=== PATIENT | female | born 1955 | race Caucasian/White ===

== ENCOUNTER → 2017-11-16 09:39 | Outpatient (REF) | payer BC, SELFPAY ==
--- NOTE | 2017-11-16 08:15 | PAPFT_PTH ---
PATIENT: Rayo Guthrie LOC: [facility] U#:[id number] AGE/SX: 70/F ROOM: RE11/16/[address]: VANE Gonzalez : 1955 BED: DIS: SPEC #: [id number] RECD: 11/16/17 12:59 STATUS: [place] REQ #: [id number] ESTELLA: 11/16/17 08:[address]: Radha Singh DEPT: FORMERLY [facility], [facility] Cytology RECD BY: Michelle Bella ENTERED: 11/16/17 12:59 SP TYPE: PAPFT OTHR DR: Carine Kinney MD Tissues: 1 - CX/ENDOCX FOR PAP SMEARS Procedures: PAP THIN PREP/UVM Screening HPV DNA PROBE Comments: [id number]
== END ==
LOC: LBN 09:39
PROVIDERS: PCP Internal Medicine; Visit Provider Nurse Practitioner Family
DX: Z12.4 Encounter for screening for malignant neoplasm of cervix (principal); Z11.51 Encounter for screening for human papillomavirus (HPV)
CPT/HCPCS: 88142; 87624

== ENCOUNTER 2018-04-16 01:14 | Outpatient (CLI) | payer BC, SELFPAY ==
--- NOTE | 2018-04-16 14:46 | DI.DEXA_ITS ---
SYMPTOMS/DIAGNOSIS: SCREENING FOR OSTEOPOROSIS, Z13.820 DEXA SCAN: Routine examination. No priors. Evaluation of the left hip shows a total T score of -2.3 and a Z score of -1.1. This is consistent with osteopenia and an increased fracture risk. Evaluation of the lumbar spine shows a total T score of 0.4 and a Z score of 2.2 which is within normal limits. The single view of the lateral spine shows no compression deformities. IMPRESSION: Osteopenia of the left hip. No evidence of osteoporosis.
== END 2018-04-16 01:34 ==
PROVIDERS: PCP Internal Medicine; Visit Provider Internal Medicine
DX: M85.88 Other specified disorders of bone density and structure, other site (principal)
CPT/HCPCS: 77080

== ENCOUNTER 2018-04-23 01:59 | Outpatient (CLI) | payer BC, SELFPAY ==
[2018-04-23 16:55] LABS: HCT 38.2 % (36.0-46.0); HGB 12.7 g/dL (12.0-15.5); Mean Corp. HGB Concentration 33.2 g/dL (32.0-36.0); Mean Corpuscular Volume 87.2 fL (80-95); Mean Platelet Volume 9.6 fL (8.0-11.0); Platelet Count 366 x1000/uL (130-400); RBC 4.38 m/cumm (4.00-5.20); White Blood Cell Count 11.39 k/cumm (4.4-10.8)
== END 2018-04-23 02:19 ==
PROVIDERS: PCP Internal Medicine; Visit Provider Internal Medicine
DX: Z83.2 Family history of diseases of the blood and blood-forming organs and certain disorders involving the immune mechanism (principal)
CPT/HCPCS: 36415; 85027

== ENCOUNTER 2019-01-03 17:46 | Emergency (ER) | payer BC, SELFPAY ==
[2019-01-03 17:48] VITALS: BP 131/75; PULSE 56; RESP 16; TEMP 36.5; O2SAT 100
--- NOTE | 2019-01-03 17:53 | DI.RAD_ITS ---
EXAM: XR WRIST RT COMPLETE CLINICAL HISTORY: pain after fall. TECHNIQUE: 2D digital imaging was performed. COMPARISON: No exams were available for comparison FINDINGS: BONES: There is a comminuted fracture of the distal radius. The fracture is intra-articular. There is depression of the lateral aspect of the fracture. Also displaced fracture fragments noted. There is a mildly displaced ulnar styloid process fracture. JOINTS: The carpal bones are normally aligned. SOFT TISSUE: There is soft tissue swelling about the wrist. IMPRESSION: Comminuted, displaced, and depressed intra-articular fracture of the distal right radius. Mildly displaced ulnar styloid process fracture.
--- NOTE | 2019-01-03 17:58 | W.ED.GENAD ---
Discharge Plan Disposition Patient Disposition: HOME Condition: Improving Discharge Details Chief Complaint: Orthopedic Clinical Impression: Distal radius fracture, right Primary Care Provider: Carine Kinney ED Provider: Skip Resendez Home Meds and New Rx's Prescriptions: Continued multivitamin [Daily Multi-Vitamin] 1 EACH tablet 1 ea PO DAILY RF: 0 calcium carbonate-vitamin D3 1 EACH tablet 1 ea PO DAILY RF: 0 ascorbic acid (vitamin C) [Vitamin C] 1,000 MG tablet 1,000 mg PO DAILY RF: 0 Discharge Instructions Instructions: Wrist Fracture in Adults (ED) Additional Instructions: Elevate above the level of the heart to reduce pain and swelling. Please apply ice through the splint material to reduce swelling as well. Sling as needed for comfort Return if you develop numbness, tingling, blue fingertips or increasing pain. You may use Tylenol and/or ibuprofen as needed for pain. I discussed your case this evening with Dr Alonso, who wishes to see you in the office Sunday or Sunday. Please call the office Sunday morning for an appointment time. The phone number is [phone]. Medical Decision Making 63-year-old female presents from home after descending a ladder while painting, stumbled, landed on outstretched right hand with immediate distal radius pain and swelling. She took [id number] NSAID, rested for approximately 1 hour, then presented to the ER for evaluation. X-ray with distal radius fracture: Comminuted intra-articular fracture. Case discussed with on-call orthopedics, Dr. Alonso. Patient placed in sugar tong splint and referred for CT images for further characterization of fracture. Remains neuro/vascular intact. Stable for outpatient management and she will follow-up with orthopedics in clinic on Sunday. Patient understands follow-up as well as return precautions. HPI General Mode of arrival: ambulatory. Date/Time Provider Initiated Documentation: 01/03/19 17:52. Limitations to Documentation: no limitations. Information obtained by: patient. History of Present Illness 63 year old F presents to the emergency department with the chief complaint of Fall on outstretched hand while descending a ladder, distal right pain, described as moderate, Quality is described as dull and constant, and is localized to the right and upper extremity. Patient reports no radiation. Patient started experiencing this minute(s) Rest improves symptom(s), Movement worsens symptoms . Patient notes no other symptoms.. Patient did receive the following treatments prior to arrival, none Related Data Home Medications Medication Instructions Recorded Confirmed calcium carbonate-vitamin D3 1 ea PO DAILY 09/20/12 01/03/19 multivitamin [Daily Multi-Vitamin] 1 ea PO DAILY 09/20/12 01/03/19 ascorbic acid (vitamin C) [Vitamin 1,000 mg PO DAILY 04/04/17 01/03/19 C] Allergies Allergy/AdvReac Type Severity Reaction Status Date / Time No Known Drug Allergies Allergy Verified 01/03/19 17:52 General Stated Complaint: Orthopedic PUJA: 4 Review of Systems Review of Systems Narrative: No numbness or tingling. Denies other injury. No loss of consciousness. FORMERLY [facility] Medical History Diverticulitis (Chronic ~1997) 2nd operation, temporary colostomy reverse colostomy Menopause (Chronic ~2005) Surgical History H/O: hysterectomy (Chronic ~10/1999) Ligation of fallopian tube (Chronic) S/P cataract extraction (Chronic) left 06/25/97, right 07/16/97 S/P cervical polypectomy (Chronic ~08/1999) Family History Mother , cancer, malignant mixed mesodermal, chondrosarcomamatous comp at age 75. Stomach cancer Essential hypertension Father , CAD at age 73, cardiac arrest due to a fib, CHF. CAD (coronary artery disease) Sister Essential hypertension Paternal Grandfather , 79, cerebrovascular, hypertensive, cardiovascular Essential hypertension Paternal Grandmother , 78 anoxic encephalopathy No problems noted. Maternal Grandfather , 60, cancer No problems noted. 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 Pleasant, well groomed, interactive. HEAD: Normocephalic, atraumatic ENT: Mucous membranes moist, oropharynx unremarkable EYES: PERRL, EOMI NECK: Full ROM, no JEAN CLAUDE, no menigismus CHEST/RESP: Nontender. Back: Nontender EXT: The right distal radius/metacarpal junction with dorsal ecchymosis, swelling, tenderness. 2+ radial pulse. Distal motor function intact but limited by pain. Sensation is intact throughout. Neuro: Grossly normal neurologic exam, conversant, interactive. Psych: Speech fluent, thoughts congruent, affect normal Course Vital Signs Vital signs: Vital Signs Temperature 36.5 C 01/03/19 17:48 Pulse 56 L 01/03/19 17:48 Respiratory Rate 16 01/03/19 17:48 Blood Pressure 131/75 01/03/19 17:48 Pulse Oximetry 100 01/03/19 17:48 Temperature 36.5 C 01/03/19 17:48 Temperature Source Skin 01/03/19 17:48 Pulse 56 L 01/03/19 17:48 Respiratory Rate 16 01/03/19 17:48 Respiratory Effort Non-Labored 01/03/19 17:52 Blood Pressure 131/75 01/03/19 17:48 Blood Pressure Position Sitting 01/03/19 17:48 Pulse Oximetry 100 01/03/19 17:48 Oxygen Delivery Method Room Air 01/03/19 17:48 Oxygen Flow Rate 0 01/03/19 17:48
--- NOTE | 2019-01-03 20:00 | DI.CT_ITS ---
EXAM: CT UPPER EXTREMITY RT WO CLINICAL HISTORY: distal radius fracture. TECHNIQUE: Multiple contiguous axial images through the right wrist were obtained. Sagittal and cor onal reformatted images were performed. COMPARISON: X-ray of the right wrist dated 01/03/2019 FINDINGS: There is a comminuted fracture involving the distal right wrist. The fracture is intra-articular and depressed. The anterior fracture fragment and wrist are displaced anteriorly. There are tiny osseo us fragments adjacent to the trapezium. These may be chronic or represent small avulsed fracture fra gments. There is a mildly displaced ulnar styloid process fracture. There is soft tissue swelling o f the wrist. IMPRESSION: Comminuted, intra-articular, and depressed fracture involving the distal radius. The anterior fractu re fragments and the wrist are displaced anteriorly. Mildly displaced ulnar styloid process fracture. Tiny calcific densities adjacent to the trapezium. These may be chronic. However acute avulsed frac ture fragments cannot be excluded.
[2019-01-03 22:30] VITALS: BP 131/75; PULSE 56; RESP 16; O2SAT 100
== END 2019-01-03 20:20 | disposition home or self-care (01) ==
PROVIDERS: Emergency Provider Emergency Medicine; PCP Internal Medicine
DX: S52.591A Other fractures of lower end of right radius, initial encounter for closed fracture (principal); W11.XXXA Fall on and from ladder, initial encounter
CPT/HCPCS: 29125; 99284; 73110; 73200; L3650

== ENCOUNTER 2019-01-10 06:15 | Day surgery (SDC) | payer BC, SELFPAY ==
[2019-01-10] VITALS (7 sets, daily range): BP systolic 110–130; BP diastolic 63–84; PULSE 57–76; RESP 13–16; TEMP 36.4–37.2; O2SAT 99–100
--- NOTE | 2019-01-10 07:03 | ROE_ITS ---
Date of service: 01/10/19 Time of Service: 07:14 Operative Note Operative Note DATE OF PROCEDURE: 01/10/19 PRE-OP DIAGNOSIS: 1. Right intra-articular distal radius fracture 2. Right ulnar styloid fracture POST-OP DIAGNOSIS: same PROCEDURE: 1. Right distal radius ORIF, intra-articular 3 fragments 2. Closed treatment without manipulation Right ulnar styloid fracture SURGEON: Wesley Alonso ASSISTING SURGEON: Leopoldo Escobar ANESTHESIA: GETA and local ESTIMATED BLOOD LOSS: 15 TOURNIQUET TIME: 70 COMPLICATIONS: None Patient was transported to: PACU Patient's condition: stable Implants: Synthes 2.4 mm variable angle LCP distal radius plate 2.4 mm variable angle locking screws distally x 6 of appropriate length 2.7 mm cortex screws proximally x 2 of appropriate length Indications: See history and physical Findings: Displaced right radial styloid and volar Dave intra-articular fractures Procedure Description: The patient was taken to the operating room and placed upon the operating room table. The correct patient, procedure, site of procedure were all confirmed prior to induction of general anesthesia. All bony prominences were well-padded. The right upper extremity was positioned on the hand table and prepped and draped in the usual sterile fashion for wrist surgery. A nonsterile tourniquet had been placed high on the patient's arm or padding. The standard volar FCR approach to the distal radius was used. Care was taken to protect the radial artery and ligate any branches. Retraction was done gently with blunt retractors to reduce the risk of vascular or nerve injury. I went through the floor of the FCR tendon sheath. The pronator quadratus was mobilized off the distal radius ulnarly. The fracture was then identified, debrided of clot and fibrous tissue, and preliminarily reduced bluntly. There was an intra-articular volar splint as well as a displaced separate radial styloid articular fragment. These 2 fragments were reduced to the remaining intact shaft and lunate facet at the joint. An appropriate length and size volar distal radius plate was selected and positioned about the volar surface of the distal radius. It was provisionally held in place with K wires. AP and lateral fluoroscopy were used to optimize plate position. After the fracture and plate were ideally positioned, a cortex screw was used to compress the plate to the distal radial shaft. I then used the variable locking guide to place 3 locking screws in the radial shaft fragment, 2 screws in the volar Dave fragment, and and another screw in the intact lunate facet. Care was taken un maurilio AP, lateral, radial inclination, and oblique fluoroscopy to ensure all screws were of appropriate length and not prominent into the joint. A second shaft most proximal cortex screw was placed. All screws were final tightened. Final AP and lateral fluoroscopy confirmed appropriate placement of our hardware in excellent fracture reduction. The wound was copiously irrigated. A tourniquet was let down and manual pressure was held for 2 minutes. There was no arterial bleeding. The radial artery was palpable. Careful hemostasis was achieved. The pronator quadratus was reduced over the hardware. Subcutaneous tissue was closed using 3-0 Monocryl in a buried interrupted fashion. The skin was closed using 4-0 nylon in horizontal mattress fashion. The incision was covered with Xeroform and dry gauze. A small and minimally displaced ulnar styloid fracture was visualized on AP and lateral fluoroscopy. The decision was made to accept this alignment and treat this fracture in a closed fashion. A volar splint was then applied to the right forearm, wrist, and hand using soft roll fiberglass sheets and an Shakeel wrap. The patient awoke from anesthesia without complication was taken to the recovery room in stable fashion.
[2019-01-10] MEDS: Lactated Ringers 1,000 ML 100 ML IV (07:11)
--- NOTE | 2019-01-10 07:20 | DI.RAD_ITS ---
EXAM: XR WRIST RT LIMITED CLINICAL HISTORY: RIGHT DISTAL RADIUS FRACTURE. FINDINGS: C-arm fluoroscopy was utilized by Dr. Alonso during open reduction and internal fixation of fracture o f the distal radius. Hard copies show plate and screw fixation of distal radial fracture fragments.
[2019-01-10] MEDS: ceFAZolin 2 GM/50 ML BAG IVPB (07:42)
[2019-01-10] MEDS: Bupivacaine 0.25% Pres-Free 30 ML VIAL (09:35)
[2019-01-10] MEDS: fentaNYL 100 MCG/2 ML VIAL IVP (10:25)
--- NOTE | 2019-01-10 15:53 | DI.RAD_ITS ---
EXAM: XR WRIST RT LIMITED INDICATION: Postop. COMPARISON: No exams were available for comparison TECHNIQUE: 2D digital imaging was performed. FINDINGS: Two views were obtained and show plate and screw fixation of distal radial fracture fragments. Ulnar -styloid fracture again noted as well. The wrist is in splint. IMPRESSION:
== END 2019-01-10 12:04 | disposition home or self-care (01) ==
PROVIDERS: PCP Internal Medicine; Visit Provider Student in an Organized Health Care Education/Training Program
PROC: (CPT 25609; principal; 2019-01-10 07:30)
DX: S52.571A Other intraarticular fracture of lower end of right radius, initial encounter for closed fracture (principal); S52.611A Displaced fracture of right ulna styloid process, initial encounter for closed fracture; W11.XXXA Fall on and from ladder, initial encounter; Y93.E9 Activity, other interior property and clothing maintenance
CPT/HCPCS: 25609; 25650; C1713; 76000; 73100; J0690; J1885; J2405; J3010

== ENCOUNTER 2019-01-21 07:10 | Outpatient (CLI) | payer BC, SELFPAY ==
--- NOTE | 2019-01-21 09:42 | DI.RAD_ITS ---
EXAM: XR WRIST RT LIMITED INDICATION: 1st post op. COMPARISON: XR WRIST RT LIMITED from 01/10/2019 TECHNIQUE: 2D digital imaging was performed. FINDINGS: Two views were obtained and show previously described plate and screw fixation of fracture of the dis candida radius with no gross interval change in alignment of the fracture fragments in comparison with th e previous examination of January 10. IMPRESSION:
== END 2019-01-21 07:30 ==
PROVIDERS: PCP Internal Medicine; Visit Provider Student in an Organized Health Care Education/Training Program
DX: S52.571D Other intraarticular fracture of lower end of right radius, subsequent encounter for closed fracture with routine healing (principal)
CPT/HCPCS: 73100

== ENCOUNTER 2019-02-18 10:20 | Outpatient (CLI) | payer MEDICARE, SELFPAY ==
--- NOTE | 2019-02-18 09:25 | DI.RAD_ITS ---
EXAM: XR WRIST RT LIMITED INDICATION: f/u of distal radius + ulna styloid fractures. COMPARISON: XR WRIST RT LIMITED from 01/21/2019 TECHNIQUE: 2D digital imaging was performed. FINDINGS: There has been no change in alignment of the ulnar styloid process fracture. There is again seen a sideplate and screws transfixing the distal radial fracture which appears stabl e. The bones appear osteopenic suggesting decreased use.
== END 2019-02-18 10:40 ==
PROVIDERS: PCP Internal Medicine; Visit Provider Physician Assistant
DX: S52.611D Displaced fracture of right ulna styloid process, subsequent encounter for closed fracture with routine healing (principal); S52.571D Other intraarticular fracture of lower end of right radius, subsequent encounter for closed fracture with routine healing; X58.XXXD Exposure to other specified factors, subsequent encounter
CPT/HCPCS: 73100

== ENCOUNTER 2019-04-15 09:24 | Outpatient (CLI) | payer MEDICARE, OTHER, SELFPAY ==
--- NOTE | 2019-04-15 09:27 | DI.RAD_ITS ---
EXAM: XR WRIST RT COMPLETE INDICATION: f/u right wrist fracture. COMPARISON: No exams were available for comparison TECHNIQUE: 2D digital imaging was performed. FINDINGS: A fixation plate is again noted along the volar aspect of the distal radius for fracture fixation. T he ulnar styloid fracture appears unchanged. Soft tissue swelling remains present.
== END 2019-04-15 09:44 ==
PROVIDERS: PCP Internal Medicine; Referring Provider Internal Medicine; Visit Provider Student in an Organized Health Care Education/Training Program
DX: S52.571D Other intraarticular fracture of lower end of right radius, subsequent encounter for closed fracture with routine healing (principal); S52.611D Displaced fracture of right ulna styloid process, subsequent encounter for closed fracture with routine healing; X58.XXXD Exposure to other specified factors, subsequent encounter
CPT/HCPCS: 99213; 73110

== ENCOUNTER 2020-04-26 03:16 | Outpatient (CLI) | payer MEDICARE, SELFPAY ==
[2020-04-26 11:07] LABS: Calculated LDL 97 mg/dL (<100); Cholesterol 207 mg/dL (<200); HDL Cholesterol 101 mg/dL (40-60); Triglyceride 47 mg/dL (<150)
== END 2020-04-26 03:36 ==
PROVIDERS: PCP Internal Medicine; Visit Provider Internal Medicine
DX: Z13.6 Encounter for screening for cardiovascular disorders (principal); E78.89 Other lipoprotein metabolism disorders
CPT/HCPCS: 36415; 80061

== ENCOUNTER → 2022-02-27 01:32 | Outpatient (CLI) | payer MEDICARE, SELFPAY ==
--- NOTE | 2022-02-27 07:45 | DI.MRI_ITS ---
Exam(s) MR LOWER JOINT RT WO EXAM: MR LOWER JOINT RT WO CLINICAL HISTORY: 1 year of hip pain, no benefit from PT,rt hip pain, m25.551 TECHNIQUE: Multiplanar multisequence MRI of Pelvis was performed COMPARISON: No exams were available for comparison FINDINGS: Exam is limited without benefit of comparison plain films. There is high signal in right superior acetabulum and and adjacent portion of the right femoral head. There is severe hip joint space narrowing, periarticular spurring as well as surrounding large join t effusion. Findings are consistent with end-stage degenerative changes. Left hip shows acetabular spurring a few cysts in the superior acetabulum. The SI joints and symphysis pubis are well maintained. Musculotendinous structures: There is mild atrophy of the right gluteus medius, minimus and trudy m uscles compared to the left side. Musculotendinous structures demonstrate no abnormality. A uterine fibroid is noted. Bladder is unremarkable. IMPRESSION: Severe degenerative changes of the right hip with large surrounding joint effusion. DATA REPOSITORY:
== END ==
PROVIDERS: PCP Nurse Practitioner Adult Health; Visit Provider Family Medicine
DX: M16.11 Unilateral primary osteoarthritis, right hip (principal)
CPT/HCPCS: 73721

== ENCOUNTER 2022-05-12 10:58 | Outpatient (CLI) | payer MEDICARE, SELFPAY ==
--- NOTE | 2022-05-12 09:15 | DI.RAD_ITS ---
Exam(s) XR HIP RT COMPLETE AP PELVIS EXAM: XR HIP RT COMPLETE AP PELVIS CLINICAL HISTORY: right hip pain. TECHNIQUE: 2D digital imaging was performed. COMPARISON: CR XR WRIST RT COMPLETE from 04/15/2019 MR MR LOWER JOINT RT WO from 02/27/2022 FINDINGS: No fractures. Significant osteoarthritic degenerative changes are noted in the right hip joint inclu ding joint space narrowing is most proximal superiorly and degenerative subarticular cysts on both si marlin of the joint. Lesser amount degenerative change noted on the opposite-left side. IMPRESSION: Advanced degenerative changes in right hip joint. DATA REPOSITORY: RADIATION DOSE DELIVERED:
== END 2022-05-12 10:59 | disposition home or self-care (01) ==
LOC: DIORS 10:59
PROVIDERS: PCP Nurse Practitioner Adult Health; Referring Provider Nurse Practitioner Adult Health; Visit Provider Physician Assistant
DX: M16.11 Unilateral primary osteoarthritis, right hip (principal)
CPT/HCPCS: 99203; 73502

== ENCOUNTER 2022-05-18 01:55 | Outpatient (CLI) | payer MEDICARE, SELFPAY ==
[2022-05-18 15:19] LABS: HCT 40.6 % (36.0-46.0); HGB 13.3 g/dL (11.2-15.7); MCH 28.5 pg (27.0-33.0); MCHC 32.8 % (32.0-36.0); MCV 87 fL (80-95); MPV 9.6 fL (8.0-11.0); Platelet Count 366 10^3/uL (130-400); RBC 4.66 10^6/uL (3.93-5.22); RDW 12.5 % (11.7-14.6); RDW-SD 39.8 fL; WBC 11.45 10^3/uL (4.4-10.8)
[2022-05-18 16:08] LABS: Anion Gap 2.9 mmol/L (3-11); BUN 16 mg/dL (7-18); CO2 33.1 mmol/L (21.0-32.0); CREATININE 0.7 mg/dL (0.55-1.02); Calcium 10.7 mg/dL (8.5-10.1); Chloride 105 mmol/L (98-107); Estimated GFR 93.56 (mL/min/1.73m2); Glucose 92 mg/dL (74-106); Potassium 3.9 mmol/L (3.5-5.1); Sodium 141 mmol/L (136-145)
== END 2022-05-18 01:56 | disposition home or self-care (01) ==
LOC: LBO 01:55
PROVIDERS: PCP Nurse Practitioner Adult Health; Visit Provider Student in an Organized Health Care Education/Training Program
DX: M16.11 Unilateral primary osteoarthritis, right hip (principal); Z01.818 Encounter for other preprocedural examination
CPT/HCPCS: 36415; 80048; 85027

== ENCOUNTER 2022-05-23 06:03 | Day surgery (SDC) | payer MEDICARE, SELFPAY ==
[2022-05-23] VITALS (16 sets, daily range): BP systolic 78–146; BP diastolic 54–124; PULSE 50–88; RESP 12–20; TEMP 35.9–36.5; O2SAT 96–100; BMI 23.8
--- NOTE | 2022-05-23 06:33 | W.ANESPRE ---
General Info Date of Service Date Performed: 05/23/22 Height: 5 ft 7 in Weight: 68.946 kg Body Mass Index (BMI): 23.8 Surgical Procedure: Operation Date: 05/23/22 07:50 Proposed Procedure Side Surgeon p Hip Total Hip Anterior Right Bryant Mendoza MD Meds Allergies and Home Medications Allergies Allergy/AdvReac Type Severity Reaction Status Date / Time No Known Drug Allergies Allergy Verified 05/23/22 06:23 Home Medication Medication Instructions Recorded calcium carbonate 600 mg-vitamin 1 ea PO DAILY 09/20/12 D3 5 mcg (200 unit) tablet multivitamin (Daily Multi-Vitamin 1 ea PO DAILY 09/20/12 tablet) ascorbic acid (vitamin C) 1,000 mg 1,000 mg PO DAILY 04/04/17 tablet (Vitamin C) loratadine 10 mg tablet 10 mg PO DAILY 05/22/22 acetaminophen 500 mg tablet 1,000 mg PO Q8H PRN pain #90 tabs 05/23/22 aspirin 81 mg tablet,delayed 81 mg PO BID 30 days #60 tabs 05/23/22 release celecoxib 200 mg capsule (Celebrex) 200 mg PO BID PRN #60 caps 05/23/22 dexamethasone 4 mg tablet 4 mg PO DAILY #2 tabs 05/23/22 docusate sodium 100 mg capsule 100 mg PO BID #30 caps 05/23/22 (Colace) oxycodone 5 mg tablet 5 mg PO Q6H PRN severe 05/23/22 post-operative pain #12 tabs pantoprazole 40 mg tablet,delayed 40 mg PO DAILY 14 days #14 tabs 05/23/22 release Current Visit Medications: Current Medications Generic Name Dose Route Start Last Admin Trade Name Freq PRN Reason Stop Dose Admin Acetaminophen 1,000 mg 05/23/22 06:00 Acetaminophen 500 Mg Tab PO 05/23/22 18:00 PREOP [place] Celecoxib 400 mg 05/23/22 06:00 Celecoxib 200 Mg Cap PO 05/23/22 18:00 PREOP [place] Tranexamic Acid 1,000 mg/ 60 mls @ 360 mls/hr 05/23/22 06:00 Sodium Chloride IV 05/23/22 18:00 PREOP [place] Ringer's Solution 1,000 mls @ 80 mls/hr 05/23/22 06:00 IV 06/21/22 23:59 INFUSION E[place] Cefazolin Sodium/Dextrose 2 gm in 50 mls @ 100 mls/hr 05/23/22 06:00 Ancef Duplex IVPB 05/23/22 18:00 PREOP [place] IV Miscellaneous Supplies 1 each 05/23/22 06:00 Iv Access IV 06/21/22 23:59 DIRECTED [place] Sodium Chloride 0 ml 05/23/22 06:00 Normal Saline Flush 10 Ml Syr IV 06/21/22 23:59 PRN PRN Sodium Chloride 0 ml 05/23/22 06:00 Normal Saline 10 Ml Vial IJ 06/21/22 23:59 DIRECTED PRN Sterile Water 0 ml 05/23/22 06:00 Water,Injection,Sterile 10 Ml Vial IJ 06/21/22 23:59 DIRECTED PRN PFSH Active Problems Active Problems: Problem Status Onset Code Arthritis of right hip M16.11 Medical History Medical History Distal radius fracture, right (01/03/19) Elevated blood-pressure reading, without diagnosis of hypertension (06/15/15) Fracture of ulnar styloid (01/03/19) Menopause (~2005) Surgical History Surgical History (Updated 05/23/22 @ 06:25 by Clara Soto) History of open reduction and internal fixation (ORIF) procedure R wrist Hx of colonoscopy Ligation of fallopian tube Tobacco Smoking/Tobacco Use Status: Never Alcohol Alcohol Intake: current Alcohol intake frequency: a few times a month Alcohol type: other Substance Use Substance use: Never Substance use type: does not use Vital Signs and Lab Results Lab Results Blood Type / Crossmatch: No Data to Display Complete Blood Count: White Blood Count 11.45 10^3/uL (4.4-10.8) H 05/18/22 15:13 Red Blood Count 4.66 10^6/uL (3.93-5.22) 05/18/22 15:13 Hemoglobin 13.3 g/dL (11.2-15.7) 05/18/22 15:13 Hematocrit 40.6 % (36.0-46.0) 05/18/22 15:13 Platelet Count 366 10^3/uL (130-400) 05/18/22 15:13 Complete Metabolic Panel: Sodium 141 mmol/L (136-145) 05/18/22 15:13 Potassium 3.9 mmol/L (3.5-5.1) 05/18/22 15:13 Chloride 105 mmol/L (98-107) 05/18/22 15:13 Carbon Dioxide 33.1 mmol/L (21.0-32.0) H 05/18/22 15:13 BUN 16 mg/dL (7-18) 05/18/22 15:13 Creatinine 0.7 mg/dL (0.55-1.02) 05/18/22 15:13 Est GFR (CKD-EPI 2020) 93.56 (mL/min/1.73m2) 05/18/22 15:13 Calcium 10.7 mg/dL (8.5-10.1) H 05/18/22 15:13 Glucose 92 mg/dL (74-106) 05/18/22 15:13 Liver Function Panel: No Data to Display Coagulation Panel: No Data to Display Cardiac Panel: No Data to Display Arterial Blood Gas: No Data to Display Venous Blood Gas: No Data to Display Pancreas Panel: No Data to Display Thyroid Panel: No Data to Display Infectious Disease: No Data to Display Blood Cultures: No Data to Display Toxicology Panel: No Data to Display Anesthesia Assessment and Plan Anesthesia History Personal History: No History of Anesthesia Complications Family History: No Family History of Anesthesia Complications Exercise Tolerance Exercise Tolerance: Metabolic Equivalents>4 Pertinent Negatives Pertinent Negatives: No Symptoms of GERD, No Major Cardiovascular Symptoms or Complaints, No Major Pulmonary Symptoms or Complaints and No History of CVA/TIA Cardiac & Pulmonary Exam Cardiac Exam: Normal S1/S2 Heart Sounds Pulmonary Exam: Clear Bilateral Breath Sounds Implantable Cardiac Device Does patient have a Pacemaker or an ICD?: No Airway Exam Known Difficult Airway: No Mallampati Class: 2 Mouth Opening: Normal (> 3cm) Thyromental Distance: Greater than 3 cm Neck Range of Motion: Full ROM Neck Circumference: Normal Teeth Condition: Normal Dentition ASA Classification ASA Score: ASA 2 Emergency Case?: No NPO Status NPO Status: NPO Clears >2 hours, Solids >8 hours Anesthesia Plan Resuscitation Status: Full Code Anesthesia Technique: Spinal Anesthesia Airway Planned: Natural Airway Monitors Used: Standard Monitors
[2022-05-23] MEDS: Celecoxib 200 MG CAP 400 MG PO (06:35)
[2022-05-23] MEDS: Acetaminophen 500 MG TAB 1000 MG PO (06:35)
--- NOTE | 2022-05-23 06:45 | DI.RAD_ITS ---
Exam(s) XR HIP RT IN OR EXAM: XR HIP RT IN OR CLINICAL HISTORY: right total hip. TECHNIQUE: 2D digital imaging was performed. COMPARISON: No exams were available for comparison FINDINGS: Fluoroscopy provided during hip arthroplasty. See procedure report for details. Radiation exposure index: molly Turner= 3.39mGy IMPRESSION: As above. DATA REPOSITORY: RADIATION DOSE DELIVERED:
[2022-05-23] MEDS: Lactated Ringers 1,000 ML 80 ML IV (06:50)
--- NOTE | 2022-05-23 07:13 | W.PM.DS.N ---
Date of service: 05/23/22 Time of Service: 09:01 DS: Diagnosis Discharge Diagnosis (1) Arthritis of right hip: Status: Acute Discharge Plan Disposition Patient Disposition: Home Condition: Good Discharge Details Reason For Visit: Right hip DJD Attending Provider: Bryant Mendoza Primary Care Provider: Jeanine French Home Meds and New Rx's Prescriptions: New celecoxib [Celebrex] 200 mg capsule 200 mg PO BID PRNQty: 60 0RF Rx Instructions: Take one tablet twice daily for pain and inflammation aspirin 81 mg tablet,delayed release (DR/EC) 81 mg PO BID 30 Days Qty: 60 0RF acetaminophen 500 mg tablet 1,000 mg PO Q8H PRN Qty: 90 0RF Rx Instructions: Take two tablets up to every 8 hours as needed for pain pantoprazole 40 mg tablet,delayed release (DR/EC) 40 mg PO DAILY 14 Days Qty: 14 0RF dexamethasone 4 mg tablet 4 mg PO DAILY Qty: 2 0RF Rx Instructions: Take one tablet once daily for two days docusate sodium [Colace] 100 mg capsule 100 mg PO BID Qty: 30 0RF oxycodone 5 mg tablet 5 mg PO Q6H PRN (Reason: severe post-operative pain) Qty: 12 0RF Rx Instructions: Take one tablet up to every 6 hours as needed for severe pain Continued multivitamin [Daily Multi-Vitamin] 1 EACH tablet 1 ea PO DAILY calcium carbonate-vitamin D3 1 EACH tablet 1 ea PO DAILY ascorbic acid (vitamin C) [Vitamin C] 1,000 MG tablet 1,000 mg PO DAILY loratadine 10 mg Tablet 10 mg PO DAILY Discharge Instructions Additional Instructions: Total Hip Discharge Instructions Activity: The most important activity is to walk. You should try to take short walks a few times a day. You have no restrictions on movement or positioning, but do not try to force what you do. You will find some stiffness and weakness with hip flexion (lifting your knee). Do not try to strengthen this too early, continue to practice walking and stairs and this will come. - Outpatient physical therapy can be helpful to help return you to a normal gait and improve your flexibility and strength. This can start around 2 weeks. For some patients, it?s not necessary. Usually this is determined at the time of discharge or at the first post-operative visit. - You should wear the MONY hose on both legs for 2 weeks. Dressing: Keep the surgical dressing in place for at least one week. After the first week it may be removed and replace with light gauze and tape or nothing. It may get wet after 3 days but avoid soaking the dressing. If it gets wet, just lightly pat dry. It is important to always keep some gauze between skin folds, especially when you are sitting. Spend some time with the wound exposed when you are lying flat as the incision does wrinkle onto itself. Medications: - You should take Tylenol and an anti-inflammatory Celebrex as your primary pain control medications. If the Celebrex is too expensive or not covered, please call the office for another alternative (Advil/Ibuprofen or Naproxen/Aleve). - You have been prescribed a stronger pain medication Oxycodone for breakthrough pain, take as needed as prescribed. - You have also been prescribed a stomach acid reduction agent Pantoprozole to help reduce stomach acid and reflux. - You have also been prescribed Decadron to help with post-operative nausea and pain. You will take this for two days starting tomorrow. - You will be taking Aspirin 81mg twice a day for DVT prevention unless instructed otherwise. - If you have constipation you should take Colace (which has been prescribed) or Miralax (which is avaliable [id number]). It takes most people 3-4 days to have a bowel movement. Follow-up: 2 weeks If you have any acute concerns or questions, please do not hesitate to contact the office at [phone]. You may contact Dr. Mendoza with any questions after hours through the hospital at [phone] or on his cell phone at [phone]. Referrals: Bryant Mendoza MD [ [facility] STAFF PHYSICIAN] - Equipment/Supplies: Walker Activity:: Activity as Tolerated Remove Dressings/Wound Care:: Do Not Remove Shower/Bathe:: Cover Diet:: As Tolerated Discharge Orders Discharge Orders: Discharge Order (Routine); Ordered 05/23/22 Ordered By: Bryant Mendoza DS: Summary Time Spent with Patient providing and/or coordinating discharge services: Less than 30 minutes Status at Discharge Functional status at discharge: uses cane/walker Overall status at discharge: patient is progressing back to baseline Mental Status: mental status grossly normal Speech and Movement: speech and movement normal Mood: congruent mood Affect: normal affect Exam Psych Mental Status: mental status grossly normal Speech and Movement: speech and movement normal Mood: congruent mood Affect: normal affect DS: Data Vitals/I&O Vitals and I&O: Vital Signs Temperature 97.2 F L 05/23/22 06:26 Pulse 67 05/23/22 06:26 Pulse Rhythm Regular 05/23/22 06:26 Respiratory Rate 18 05/23/22 06:26 Respiratory Depth Normal 05/23/22 06:26 Blood Pressure 146/124 H 05/23/22 06:26 Pulse Oximetry 100 05/23/22 06:26 Oxygen Delivery Method Room Air 05/23/22 06:26 Oxygen Flow Rate 0 05/23/22 06:26 Pain Level 7 05/23/22 06:26 Intake & Output 05/22/22 05/22/22 05/23/22 11:59 23:59 11:59 Weight 152 lb 152 lb PFSH All Active Problems Arthritis of right hip (Acute) Medical History Distal radius fracture, right (01/03/19) Elevated blood-pressure reading, without diagnosis of hypertension (06/15/15) Fracture of ulnar styloid (01/03/19) Menopause (~2005) Surgical History History of open reduction and internal fixation (ORIF) procedure R wrist Hx of colonoscopy Ligation of fallopian tube Family History Mother , cancer, malignant mixed mesodermal, chondrosarcomamatous comp at age 75. Stomach cancer Essential hypertension Father , CAD at age 73, cardiac arrest due to a fib, CHF. CAD (coronary artery disease) Sister Essential hypertension Paternal Grandfather , 79, cerebrovascular, hypertensive, cardiovascular Essential hypertension Paternal Grandmother , 78 anoxic encephalopathy No problems noted. Maternal Grandfather , 60, cancer No problems noted. 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 Current gender identity: female What is your relationship status?: How often do you talk on the phone with friends or family?: once per week How often do you get together with friends or relatives?: once per week Panel score (0-1 are the most socially isolated patients): 0 What type of physical activity do you participate in: regular exercise and other Details: goes to gym 3x/week Frequency: 3-4 times per week Seatbelt use: always Drive intox or ride w/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
[2022-05-23] MEDS: ceFAZolin 2 GM/50 ML BAG IVPB (07:35)
--- NOTE | 2022-05-23 08:58 | ROE_ITS ---
Date of service: 05/23/22 Time of Service: 08:58 Operative Note Operative Note DATE OF PROCEDURE: 05/23/22 PRE-OP DIAGNOSIS: Right Hip Osteoarthritis POST-OP DIAGNOSIS: same PROCEDURE: Right Anterior Total Hip Arthroplasty with Intraoperative Navigation SURGEON: Bryant Mendoza ORTHOTICS PROSTHETICS TECHNICIAN: Blanquita Douglas ANESTHESIA TYPE: General LMA/ETT and Spinal Refer to Anesthesia Record ESTIMATED BLOOD LOSS: 200 PATHOLOGY: none sent TOURNIQUET TIME: 0 COMPLICATIONS: None Patient was transported to: PACU Patient's condition: stable Implants: 1. Depuy Woodbury Acetabular Component, 52mm 2. Depuy Acetabular Liner, [id number] 3. Depuy Corail Standard Collared Femoral Stem, Size 15 4. Depuy Altrx Ceramic Femoral Head, Size 36+1.5mm Indications: I have seen Rayo in clinic for symptoms of hip arthritis, confirmed with radiographic findings. She has exhausted nonoperative methods and was having significant limitations in daily function and desired better function and less pain. I discussed the technical details of a hip replacement. I explained the risks of the procedure to include, but not limited to, bleeding, infection, pain, stiffness, fracture, damage to nerves and vessels, damage to muscles and tendons, loosening, instability, leg length inequality, need for repeat procedure, blood clot and cardiopulmonary demise. Despite these risks, Rayo elected to proceed. Findings: There was significant signs of arthritis throughout the hip. Diffuse synovitis throughout as well. Procedure Description: Rayo was greeted in the preoperative holding area where the correct side was identified and marked. The consent was reviewed with the patient and signed. The history and physical was updated. All questions were answered. She was taken back to the operating room. A spinal anesthestic was then administered. The feet were wrapped with cast padding and Coban and then placed into the boot liners and then into the boots. Care was taken to protect the skin and make sure the heels were fully down and the boots were stable. The patient was then positioned onto the HANA table. Both legs were held in a neutral position. SCDs were applied. The patient was then slid down onto a peroneal post. Prophylactic antibiotics in the form of Cefazolin were administered. 1g of Tranxemic Acid was given intravenously within 30 minutes of incision. The right leg was then prepped with Chloraprep and draped in a standard fashion. A second prep with Chloraprep was performed prior to placement of a shower-curtain type drape with Iodine impregnated skin protection. A timeout to confirm correct identity, side and site, procedure, allergies, anesthesia, and medical concerns was performed. An obliquely oriented incision was made starting lateral to the ASIS and running distal over the Tensor Fascia Nadia (TFL) muscle belly toward the fibular head, approximately 10cm. The skin and soft tissue was dissected sharply, through Justin?s fascia, and to the fascia of the TFL. With the fascia and superior border of the IT band identified, the fascia was incised with a new knife just above any perforators from the IT band. The TFL muscle belly was bluntly dissected away from the fascia and moved laterally. The fat between TFL and rectus was identified to ensure the dissection was not within the TFL. Blunt dissection created space between abductors and the capsule and retractor was placed over the lateral femoral neck. The fibers of the rectus femoris tendon were identified and these were freed from the anterior capsule. A second cobra retractor was placed around the medial femoral neck. The TFL was further retracted laterally to show the deep fascia. Careful dissection through this layer identified three main crossing vessels of the lateral femoral circumflex. These were cauterized in multiple locations and then cut without any noticeable bleeding. The TFL was further released bluntly from the deep fascia to expose anterior hip capsule and fat The Marvin orthopaedic retractor was then placed beneath the TFL and against sartorius and medial soft tissues to protect and retract the soft tissues. At this point there was noted to be some motion of the legs and the toes and therefore she was converted to a general anesthetic. A T-capsulotomy was then performed starting at the superior lateral acetabulum and moving distally to the intertrochanteric ridge. These capsular flaps were tagged with a No. 1 Ethibond and elevated from within. The capsular flaps were released to the shoulder of the lateral neck and to the lesser trochanter to give excellent visualization of the proximal femur. A neck osteotomy was performed using an oscillating saw based on preoperative templates. This cut started in the shoulder and of the lateral neck and exited medially. The saw was at all times directed medially to avoid injury to the greater trochanter. Gross traction was applied to the leg and the osteotomy opened. The femoral head was removed with a corkscrew, making sure to protect the TFL on its exit. Traction was released after head removal. This was measured on the back table to determine the starting reamer size. Portions of the rectus obscuring visualization were minimally elevated off the superior acetabulum. An anterior retractor was placed over the anterior wall between capsule and labrum and attached to the Gripper retraction system. The femur was rotated to 90 degrees and medial capsule was fully released until the lesser trochanter was palpable and visible; the femur was returned to 30 degrees. A posterior retractor was placed similarly between capsule and labrum. This provided excellent visualization. The contents of the cotyloid fossa were removed with electrocautery and the labrum was removed with a knife. There was a notable floor osteophyte. There was significant chondromalacia of the superior acetabulum. Significant synovitis throughout which was resected. Acetabular reaming began with a 48mm reamer. This first reaming was directed anterior to posterior and medial to get down to the true floor. This was inspected and reamed until the true floor was reached. The anterior retractor was then released and entry and exit was provided by traction on the capsular flaps. I then reamed sequentially up to a 52mm reamer where good fit was obtained. The larger reamers were oriented based on anatomical reference of the anterior and lateral tian to ensure proper abduction and anteversion. Positioning and size was confirmed with the fluoroscopy. A 52mm Depuy Wood[place] acetabular component was selected. The acetabulum was reamed around the periphery with the selected acetabular size to prevent a rim fit. The deep tissues were irrigated. The acetabular component was then impacted in a position of about 40-45 degrees of abduction and 15-20 degrees of anteversion, using the patient?s anatomy as the ultimate landmark. Fluoroscopy was used to confirm this. There was excellent document control coordinator of the acetabular component and the inserting handle was removed. The acetabular liner, Depuy [id number] polyethylene liner, was inserted and lined up with the tines of the acetabular component. There was no soft tissue interposition. The liner was then impacted into position and confirmed to be well-seated. A portion of the quita-articular cocktail was then injected around the acetabulum into the capsule and periosteum. This cocktail consisted of 123mg of Ropivacaine, 0.25mg of Epinephrine, 0.04mg of Clonidine, and 15mg of Ketorolac, diluted to 50cc. The leg was rotated to 120 degrees. Any remaining medial capsule was released until the lesser trochanter was easily palpable. A retractor was placed medially. The lateral capsule was further released into the shoulder to allow access to the greater trochanter. A Bailey retractor was placed over the greater trochanter which allowed the trochanter to flip in front of the capsule for excellent exposure. The leg was brought down into maximal extension and 20 degrees of adduction while ensuring there was no impingement on the acetabulum. Any remnant capsule within the trochanter was released. Piriformis and obturator externis were identified and protected. There was excellent access to the proximal femur. The lateral neck remnant was removed with a rongeur. A blunt canal probe was used to identify the canal and trajectory for later broaching. A box osteotome initiated the broach course. A small curved rasp and a curved curette were used to work laterally. Broaching then began with a size 8 Corail broach. This was inserted manually around the trochanter and into the canal before mallet blows. The broach was seated to a few millimeters below the cut level based on the neck cut and the preoperative template. Sequential broaching was continued with the WizIQse pneumatic broaching device until a tight fit was obtained with good rotational control of the femur. A trial standard neck was inserted along with a +1.5 trial head. The leg was brought out of extension and adduction and then reduced with traction and internal rotation. The leg was stable anteriorly in a position of 30 degrees of extension and 90 degrees of external rotation. Fluoroscopy was used to ensure there was no fracture and the stem was seated well. Leg lengths were checked with an AP pelvis and pelvic reference points. PPLCONNECT navigation system was used to confirm appropriate positioning and leg length and offset. Once content with the desired offset and leg lengths, the leg was brought back into extension, external rotation and adduction. The periosteum and surrounding tissue was injected with remaining portion of the quita-articular cocktail. The proximal femur was irrigated as well as the deep tissues. The Depuy Corail standard collared stem, size 15, was then manually inserted into the proximal femur making sure to control rotation. It was then malleted into position with light blows, giving breaks to allow bone expansion and decrease risk of fracture. The selected Depuy Altrx Ceramic Head, size 36+1.5mm, was then placed onto the clean and dry trunnion and secured with impaction onto the tapered fit. The leg was brought back out of extension and adduction and reduced with traction and internal rotation. Stability was confirmed with no shuck at 90 degrees of external rotation and 30 degrees of extension. No impingement through range of motion arc. Final x-ray images were obtained with fluoroscopy to confirm adequate positioning and no intraoperative fracture. The deep tissues were thoroughly irrigated with Surgiphor, betadine solution. This was allowed to sit in the wound for 3 minutes before being thoroughly irrigated out with normal saline. The capsule was then reapproximated with the previously placed Ethibond sutures. The TFL fascia was finally closed with a No. 2 Stratafix, barbed suture. Deep tissues were then reapproximated with 0 Vicryl and a running 2-0 Vicryl. The skin was closed with a running 4-0 Monocryl in a subcuticular fashion. This was reinforced with skin glue. A Mepilex silver dressing was applied. At the end of the case, all counts were correct. Rayo was transferred to the hospital bed without difficulty and suffering no apparent complication. She has a good prognosis. Physical therapy will start today and without restrictions, weight-bearing as tolerated. Aspirin 81mg BID will be used for DVT prophylaxis.
[2022-05-23] MEDS: HYDROmorphone 2 MG/ML SYR IVP (09:25)
[2022-05-23] MEDS: Normal Saline Flush 10 ML SYR IV (09:25)
[2022-05-23] MEDS: ePHEDrine 50 MG/ML VIAL (10:04)
[2022-05-23] MEDS: diazePAM 10 MG/2 ML SYR 5 MG IVP (10:24)
[2022-05-23] MEDS: oxyCODONE 5 MG TAB PO (11:46)
--- NOTE | 2022-05-23 12:54 | W.ANESPOSTOP ---
Postoperative Evaluation Date, Time and Location Date Performed: 05/23/22 Time Performed: 12:54 Patient Location: Day Surgery Unit Vital Signs Most Recent Imported Vital Signs: Most Recent Vital Signs Temp Pulse Resp BP Pulse Ox 35.9 C L 83 18 129/78 100 05/23/22 12:29 05/23/22 12:29 05/23/22 12:29 05/23/22 12:29 05/23/22 12:29 Pain Score Most Recent Pain Score: Most Recent Pain Score Pain Level 3 05/23/22 12:29 Assessment Mental Status: Awake (Alert & Oriented to Patient Baseline) Airway and Respiratory Function: Patent airway with normal (patient baseline) respiratory exam Cardiovascular Function: Hemodynamically Stable Hydration Status: Adequately Hydrated Nausea & Vomiting: No Nausea or Vomiting Pain: Pain is tolerable per patient Peripheral Nerve Block: Patient did not receive a nerve block Postoperative Comments:: Spinal wearing off appropriately
--- NOTE | 2022-05-23 14:42 | PT.INIE ---
Date of service: 05/23/22 Time of Service: 12:47 PT Notes Visit Reasons: Right hip DJD Physical Therapy Day Surgery Initial Evaluation Date: 05/23/2022 Referring Doctor: CRYSTAL Patterson PT Orders: PT CONSULT: S/P Ortho Surgery Precautions: WBAT on right LE with AD. Patient Profile/Admitting Diagnosis: Sherri is a 67-year-old female with degenerative joint disease of the right hip and status post right anterior total hip arthroplasty on postoperative day 0. PMHX: Medical History? Distal radius fracture, right (01/03/19) Elevated blood-pressure reading, without diagnosis of hypertension (06/15/15) Fracture of ulnar styloid (01/03/19) Menopause (~2005) Surgical History? Hx of colonoscopy Ligation of fallopian tube Social History/Home Situation: Lives with in a private home with 2 steps to enter without rails. Independent with all aspects of ADLs prior to surgery. Equipment Owned/DME: None Subjective: Reported numbness in bilateral gluteal areas and tingling in bilateral soles of feet. Complained of mild lightheadedness throughout mobility assessment specially with bending head down. Denied headache and chest pain. Reported 4/10 pain at rest but decreased down to 1-2/10 at the end of ambulation activity. Indicated lack of full awareness with urination. Unaware of a mild incontinent episode right after standing up from bedside. Patient was taken to the bathroom right away and had a hard time feeling the toilet seat due to numbness in her bottom. Had a large amount of urine voided but patient was unable to determine this prior. Objective: General Observation: Mepilex Ag over surgical incision. TEDs to B legs. Mental Status: Alert and oriented x3 Pain: Reported 4/10 pain in surgical site at rest ROM: Right Lower Extremity: Hip flexion WFL. Hip abduction WFL. Knee flexion WFL. Ankle dorsiflexion WFL. Ankle plantarflexion WFL. Ankle inversion WFL. Ankle eversion WFL. Left Lower Extremity: Hip flexion WFL. Hip abduction WFL. Knee flexion WFL. Ankle dorsiflexion WFL. Ankle plantarflexion WFL. Ankle inversion WFL. Ankle eversion WFL. Strength: Right Lower Extremity: Hip flexors 4-/5. Hip abductors 4-/5. Knee flexors 5/5. Knee extensors 4-/5. Ankle dorsiflexors 4/5. Ankle plantarflexors 4/5. Ankle inversion 5/5. Ankle eversion 4/5. Left Lower Extremity:Hip flexors 5/5. Hip abductors 5/5. Knee flexors 5/5. Knee extensors 5/5. Ankle dorsiflexors 5/5. Ankle plantarflexors 5/5. Ankle plantarflexors 4/5. Ankle inversion 5/5. Ankle eversion 4/5. Sensation: Numbness in B gluteal areas and tingling in B soles of feet, pain sensation intact in B thighs and legs Bed Mobility/Transfers: Supine to sit stand by assist Sit to stand contact guard assist Stand to sit stand by assist Bed to chair stand by assist Gait: 150 feet using FWW with contact guard assist initally demonstrating increased hip internal rotation and feet inversion with R more affected than the L. Patient's L Le did normalize and it was only the R foot that was turning in more. Nurse and orthopedic surgeon made aware. Stairs: Ascended and descended 6 x 4-inch steps and 4 x 6-inch steps while holding onto 1 rail with 1 hand and a single-point cane with the other hand requiring contact-guard assist, step-to gait pattern. Balance: Static Sitting: Normal Dynamic Sitting: Normal Static Standing: Fair Dynamic Standing: Fair Special Tests: Mobility Limitations Standardized Measure [facility] AM-PAC 6 clicks Basic Mobility Inpatient Short Form: Raw Score: 20 CMS Score: 36% deficit Informed Consent/Education: Patient instructed in purpose of PT consult. Packet containing KEVIN exercise protocol has been given to patient. Education and training on initial set of exercises that can be done at home have been completed with patient. THERA EX: Supine gluteal sets x 5 Supine heel slides x 5 Supine ankle DF/PF Seated marches x 5 LAQs x 5 Assessment: Strength on B ankles at 4/5 for DF/PF and inversion/eversion on manual muscle testing so increased inversion during stance phase in B sides may be due to extended effect from spinal anesthesia per orthopedic surgeon. Incontinent episode has been brought up with Nurse ray and Dr. Mendoza. May go home with support from using FWW for all mobility ADLs for safety. Patient presents with clinical signs and symptoms consistent with current/admitting diagnoses that have resulted to mobility limitations, gait instability, generalized weakness, and impairment of motor control as demonstrated by the following impairment level findings: 1. Decreased strength to R hip B evertors 2. Impaired standing balance Impairments are contributing to the following functional limitations: 1. Inability to safely ambulate without assistive device 2. Increase completion time for mobility ADL performance 3. Increased fall risk Patient is assessed as a 55247 moderate complexity based on the following: History: 67-year-old female with impairment level findings, functional limitations, and past medical history as indicated above Examination: Demonstrable impairment in strength, balance, and mobility level with underlying impairments and functional limitations as documented above Presentation: Evolving Decision Makin moderate complexity Goals: N/A. PT evaluation and 1-2 treatment sessions only for functional mobility training using recommended AD and for HEP instruction. Plan of Care/Treatment Plan: N/A. PT evaluation and 1-2 treatment session only for functional mobility training using recommended AD and for HEP instruction. DISCHARGE RECOMMENDATIONS: [] Home with no services [] [] Home with services [specify] [X] Home with outpatient PT. Home when medically cleared by orthopedic surgeon. Recommend outpatient PT services in order to optimize functional mobility outcomes and facilitate return to independent community ambulation without an assistive device. [] SNF for continued rehabilitation [] [] Shelter Care [] [] SNF versus LTC based on ability to participate and progress [] TREATMENT CODE/TIME: 82397 x 20 minutes, 20590 x 32 beginning at 12:47 PM. Thank you for the opportunity to participate in the care of this patient. Grecia Angulo PT, DPT, CLT [facility] [place], [place]
== END 2022-05-23 14:50 | disposition home or self-care (01) ==
PROVIDERS: PCP Nurse Practitioner Adult Health; Visit Provider Student in an Organized Health Care Education/Training Program
PROC: (CPT 27130; principal; 2022-05-23 07:30)
DX: M16.11 Unilateral primary osteoarthritis, right hip (principal)
CPT/HCPCS: 20985; 27130; C1776; 97162; 97530; 73501; J0690; J1100; J1170; J2250; J2370; J2405; J2704; J3360

== ENCOUNTER 2022-06-05 15:12 | Outpatient (CLI) | payer MEDICARE, SELFPAY ==
--- NOTE | 2022-06-05 14:45 | DI.RAD_ITS ---
Exam(s) XR HIP RT COMPLETE AP PELVIS EXAM: XR HIP RT COMPLETE AP PELVIS CLINICAL HISTORY: R THR. TECHNIQUE: 2D digital imaging was performed. Three images were obtained. AP and lateral views were obtained. COMPARISON: CR XR HIP RT COMPLETE AP PELVIS from 05/12/2022 XR HIP RT IN OR from 05/23/2022 FINDINGS: BONES: There are stable post operative changes present. No fracture or dislocation. JOINTS: The orthopedic hardware is in good position. No evidence of hardware loosening. SOFT TISSUE: Normal. IMPRESSION: Stable postoperative changes. DATA REPOSITORY: RADIATION DOSE DELIVERED:
== END 2022-06-05 15:13 | disposition home or self-care (01) ==
LOC: DIORS 15:13
PROVIDERS: PCP Nurse Practitioner Adult Health; Referring Provider Nurse Practitioner Adult Health; Visit Provider Physician Assistant
DX: Z96.641 Presence of right artificial hip joint (principal); Z47.1 Aftercare following joint replacement surgery
CPT/HCPCS: 73502

== ENCOUNTER → 2022-07-03 14:15 | Outpatient (BNVA) | payer MEDICARE, SELFPAY | PROVIDERS: PCP Nurse Practitioner Adult Health; Referring Provider Nurse Practitioner Adult Health; Visit Provider Student in an Organized Health Care Education/Training Program | DX: Z47.1 Aftercare following joint replacement surgery (principal); Z96.641 Presence of right artificial hip joint ==

== ENCOUNTER 2022-12-08 09:11 | Emergency (ER) | payer MEDICARE, SELFPAY ==
[2022-12-08 09:18] VITALS: BP 150/88; PULSE 58; RESP 18; O2SAT 100
[2022-12-08] MEDS: Lidocaine 2% Multi-Dose 50 ML VIAL (09:54)
[2022-12-08] MEDS: Tetanus & Diphtheria Tox,ADULT 0.5 ML VIAL IM (09:55)
--- NOTE | 2022-12-08 10:37 | ED.GENADUL_ITS ---
Discharge Plan Disposition Patient Disposition: Home Discharge Details Clinical Impression: Eyelid laceration, right Primary Care Provider: Jeanine French ED Provider: Carroll Kay Home Meds and New Rx's Prescriptions: No Action multivitamin [Daily Multi-Vitamin] 1 EACH tablet 1 ea PO DAILY calcium carbonate-vitamin D3 1 EACH tablet 1 ea PO DAILY ascorbic acid (vitamin C) [Vitamin C] 1,000 MG tablet 1,000 mg PO DAILY loratadine 10 mg Tablet 10 mg PO DAILY acetaminophen 500 mg tablet 1,000 mg PO Q8H PRN Qty: 90 0RF Rx Instructions: Take two tablets up to every 8 hours as needed for pain Discharge Instructions Instructions: Facial Laceration (ED) Additional Instructions: Watch for any signs of infection and return immediately to the emergency department if these occur. Otherwise keep wound clean and dry. Return to the emergency department 6 days for suture removal and was arranged by eye critical care nurse practitioner. Referrals: [facility] [Other] Medical Decision Making Patient presenting to the emergency department for chief complaint of laceration to right upper eyelid. She reports that her dog excellently scratched her eyelid causing a laceration. Patient denies any other symptoms, states normal vision, no pain to the eye itself. Physical exam shows 3.5 cm laceration to the right upper eyelid that is superficial. No muscular deficiency, no sensory deficiency, EOMs intact, no signs of globe rupture exam otherwise unremarkable beyond noted laceration. Patient consented to supraorbital block and laceration repair. Please please see procedure note for repair performed with Prolene sutures and 6 of them were placed. Tetanus was updated. patient referred to personnel officer for reassessment otherwise given instructions for return precautions. After discussion of diagnosis and plan of care patient has no further needs, questions, or concerns and states clear understanding to return to the emergency department for any worsening symptoms. This documentation was generated using [employer] system, please disregard any oddities of phrase or misspellings. HPI General Mode of arrival: ambulatory . Date/Time Provider Initiated Documentation: 12/08/22 09:16 . Limitations to Documentation: no limitations . Information obtained by: patient and RN notes reviewed . History of Present Illness 67 year old F presents to the emergency department with the chief complaint of Right upper eyelid laceration, described as moderate, Patient started experiencing this hour(s) (<1) and it has been constant. No relieving factors improve symptom(s), No exacerbating factors reported . Patient notes no other symptoms.. Patient did receive the following treatments prior to arrival, none Related Data Home Medications Medication Instructions Recorded Confirmed calcium carbonate 600 mg-vitamin 1 ea PO DAILY 09/20/12 08/21/22 D3 5 mcg (200 unit) tablet multivitamin (Daily Multi-Vitamin 1 ea PO DAILY 09/20/12 08/21/22 tablet) ascorbic acid (vitamin C) 1,000 mg 1,000 mg PO DAILY 04/04/17 08/21/22 tablet (Vitamin C) loratadine 10 mg tablet 10 mg PO DAILY 05/22/22 08/21/22 acetaminophen 500 mg tablet 1,000 mg PO Q8H PRN pain #90 tabs 05/23/22 08/21/22 Previous Rx's Medication Instructions Recorded acetaminophen 500 mg tablet 1,000 mg PO Q8H PRN pain #90 tabs 05/23/22 Allergies Allergy/AdvReac Type Severity Reaction Status Date / Time No Known Drug Allergies Allergy Verified 08/21/22 13:11 General Stated Complaint: Laceration PUJA: 4 Review of Systems Eyes Eyes: Reports as per HPI, Denies change in vision, Denies irritation, Denies itchy eyes, Denies loss of vision, Denies eye pain and Denies photophobia Integumentary/Breasts Skin/Breast: Reports as per HPI Neurologic Neurologic: Denies loss of vision Allergic/Immunologic Allergic/Immunologic: Denies itchy eyes PFSH All Active Problems Eyelid laceration, right (Acute) Osteopenia of left hip (Chronic ~2018) T-score -2.3 Medical History Distal radius fracture, right (01/03/19) Elevated blood-pressure reading, without diagnosis of hypertension (06/15/15) Fracture of ulnar styloid (01/03/19) Menopause (~2005) Surgical History History of open reduction and internal fixation (ORIF) procedure R wrist 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) Hx of colonoscopy (~2018) Ligation of fallopian tube Family History Mother , cancer, malignant mixed mesodermal, chondrosarcomamatous co mp at age 75. Stomach cancer Essential hypertension Father , CAD at age 73, cardiac arrest due to a fib, CHF. CAD (coronary artery disease) Sister Essential hypertension Paternal Grandfather , 79, cerebrovascular, hypertensive, cardiovascular Essential hypertension Paternal Grandmother , 78 anoxic encephalopathy No problems noted. Maternal Grandfather , 60, cancer No problems noted. Maternal Grandmother , 86, massive [place] Diabetes Heart disease Other Leukemia Social History Smoking/Tobacco Use Status: Never Smoking risk assessment performed?: Yes Alcohol Intake: current Alcohol Intake frequency: a few times a month Alcohol type: other Drug use: Never Substance use type: does not use Counseling given: No Household members: significant other Housing: house Number of Children: 0 Communication Needs: Corrective Lenses Education Level: college current occupation: [employer] - retired x 3 years Pets and animals: Yes Sexually active: Yes Current gender identity: female What is your relationship status?: How often do you talk on the phone with friends or family?: once per week How often do you get together with friends or relatives?: once per week Panel score (0-1 are the most socially isolated patients): 0 What type of physical activity do you participate in: walking, regular exercise and other Details: goes to gym 3x/week Frequency: 3-4 times per week Seatbelt use: always Drive intox or ride w/intox wedding transportation driver: No Working smoke detector in home: Yes Fire extinguisher in home: Yes Carbon monox detector in home: Yes Do you feel safe at home: Yes Do you feel safe in your relationship?: Yes Victim of physical abuse: No Victim of emotional abuse: No Exam Const General: cooperative, no acute distress and not ill appearing Orientation: alert, awake and oriented x3 HENMT Mouth: moist mucous membranes Eyes Visual Smart: normal visual smart by confrontation Alignment and Position: alignment normal Periorbital: periorbital findings normal Eyelids: eyelid abnormality right upper eyelid laceration (3.5cm) not involving eyelid margin Conjunctivae: conjunctivae normal Sclera: sclerae normal Cornea: corneas normal Pupils: PERRL EOM: EOM intact bilaterally, no movement deficit and No nystagmus Eyes/upper lids images: 1. laceration 3.5cm Resp Effort & Inspection: normal respiratory effort, able to speak in complete sentences and no respiratory distress Neuro General: patient alert, patient awake, patient oriented x3, moves all extremities and no focal motor deficits Cranial Nerves: no nystagmus Sensory Exam: no sensory deficits noted Course Vital Signs Vital signs: Vital Signs Pulse 58 L 12/08/22 09:18 Respiratory Rate 18 12/08/22 09:18 Blood Pressure 150/88 H 12/08/22 09:18 Pulse Oximetry 100 12/08/22 09:18 Temperature Source Oral 12/08/22 09:18 Pulse 58 L 12/08/22 09:18 Respiratory Rate 18 12/08/22 09:18 Respiratory Effort Normal, Non-Labored 12/08/22 09:35 Blood Pressure 150/88 H 12/08/22 09:18 Pulse Oximetry 100 12/08/22 09:18 Oxygen Delivery Method Room Air 12/08/22 09:18 Oxygen Flow Rate 0 12/08/22 09:18 Procedures Laceration Laceration 1: Site: face Side (If applicable): right Size (cm): 3.5 Description: linear and clean Depth: simple, single layer Local Anesthetic: Lidocaine 2% Amount of anesthesia used (mL): 3 Pre-repair: wound explored, irrigated extensively and deep structures intact Skin layer closed with: other (prolene) Size (cm): 6-0 Number of sutures: 6 Technique: simple, interrupted
--- NOTE | 2022-12-08 10:38 | NUR.NOTE ---
Nursing Note: PT needs follow up tomorrow with [facility] to recheck eye lac/sutures. SOFIYA Kiser
[2022-12-08 10:44] VITALS: BP 122/80; PULSE 72; RESP 18; TEMP 36.8; O2SAT 99
== END 2022-12-08 12:20 | disposition home or self-care (01) ==
PROVIDERS: Emergency Provider Nurse Practitioner Family; PCP Nurse Practitioner Adult Health
DX: S01.111A Laceration without foreign body of right eyelid and periocular area, initial encounter (principal); X58.XXXA Exposure to other specified factors, initial encounter
CPT/HCPCS: 12013; 90471

== ENCOUNTER 2022-12-14 15:51 | Emergency (ER) | payer MEDICARE, SELFPAY ==
--- NOTE | 2022-12-14 15:56 | ED.GENADUL_ITS ---
Discharge Plan Disposition Patient Disposition: Home Discharge Details Clinical Impression: Eyelid laceration, right Primary Care Provider: Jeanine French ED Provider: Ekaterina Orozco Home Meds and New Rx's Prescriptions: No Action multivitamin [Daily Multi-Vitamin] 1 EACH tablet 1 ea PO DAILY calcium carbonate-vitamin D3 1 EACH tablet 1 ea PO DAILY ascorbic acid (vitamin C) [Vitamin C] 1,000 MG tablet 1,000 mg PO DAILY loratadine 10 mg Tablet 10 mg PO DAILY acetaminophen 500 mg tablet 1,000 mg PO Q8H PRN Qty: 90 0RF Rx Instructions: Take two tablets up to every 8 hours as needed for pain Discharge Instructions Instructions: Facial Laceration (ED) Medical Decision Making 67 year old female presents for suture removal. Well healed right eyelid laceration with 6 sutures. Otherwise well, normal vision, no complaints. Sutures removed and discharged home. HPI General Mode of arrival: ambulatory . Date/Time Provider Initiated Documentation: 12/14/22 15:56 . Limitations to Documentation: no limitations . Information obtained by: patient . HPI Narrative: 67yo F presenting for removal of stitches. 6 sutures to right eyelid placed after injured by her dog. Otherwise in her usual state of health. No vision changes. Related Data Home Medications Medication Instructions Recorded Confirmed calcium carbonate 600 mg-vitamin 1 ea PO DAILY 09/20/12 08/21/22 D3 5 mcg (200 unit) tablet multivitamin (Daily Multi-Vitamin 1 ea PO DAILY 09/20/12 08/21/22 tablet) ascorbic acid (vitamin C) 1,000 mg 1,000 mg PO DAILY 04/04/17 08/21/22 tablet (Vitamin C) loratadine 10 mg tablet 10 mg PO DAILY 05/22/22 08/21/22 acetaminophen 500 mg tablet 1,000 mg PO Q8H PRN pain #90 tabs 05/23/22 08/21/22 Previous Rx's Medication Instructions Recorded acetaminophen 500 mg tablet 1,000 mg PO Q8H PRN pain #90 tabs 05/23/22 Allergies Allergy/AdvReac Type Severity Reaction Status Date / Time No Known Drug Allergies Allergy Verified 08/21/22 13:11 General PUJA: 4 Review of Systems Narrative: see HPI PFSH All Active Problems (Updated 12/14/22 @ 15:59 by Ekaterina Orozco MD) Eyelid laceration, right (Acute) Osteopenia of left hip (Chronic ~2018) T-score -2.3 Medical History Distal radius fracture, right (01/03/19) Elevated blood-pressure reading, without diagnosis of hypertension (06/15/15) Fracture of ulnar styloid (01/03/19) Menopause (~2005) Surgical History History of open reduction and internal fixation (ORIF) procedure R wrist 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) Hx of colonoscopy (~2018) Ligation of fallopian tube Family History Mother , cancer, malignant mixed mesodermal, chondrosarcomamatous comp at age 75. Stomach cancer Essential hypertension Father , CAD at age 73, cardiac arrest due to a fib, CHF. CAD (coronary artery disease) Sister Essential hypertension Paternal Grandfather , 79, cerebrovascular, hypertensive, cardiovascular Essential hypertension Paternal Grandmother , 78 anoxic encephalopathy No problems noted. Maternal Grandfather , 60, cancer No problems noted. 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 Pets and animals: Yes Sexually active: Yes Current gender identity: female What is your relationship status?: How often do you talk on the phone with friends or family?: once per week How often do you get together with friends or relatives?: once per week Panel score (0-1 are the most socially isolated patients): 0 What type of physical activity do you participate in: walking, regular exercise and other Details: goes to gym 3x/week Frequency: 3-4 times per week Seatbelt use: always Drive intox or ride w/intox pick up driver: No Working smoke detector in home: Yes Fire extinguisher in home: Yes Carbon monox detector in home: Yes Do you feel safe at home: Yes Do you feel safe in your relationship?: Yes Victim of physical abuse: No Victim of emotional abuse: No Exam Narrative Exam Narrative: General: Alert, well appearing, well nourished, in no acute distress. Head: Normocephalic, atraumatic Neck: Trachea midline, Neck supple. Cardiac: No cyanosis. Resp: No respiratory distress. Speaking in full sentences. . Abd: Non-distended Neurologic: Alert. Moves all extremities freely against gravity Skin: 6 prolene sutures to right eyelid laceartion. Laceration well healed.
[2022-12-14 16:02] VITALS: BP 128/80; PULSE 75; RESP 20; TEMP 36.8; O2SAT 99
== END 2022-12-14 16:07 | disposition home or self-care (01) ==
LOC: ER 16:07
PROVIDERS: Emergency Provider Student in an Organized Health Care Education/Training Program; PCP Nurse Practitioner Adult Health
DX: Z48.02 Encounter for removal of sutures (principal); S01.111D Laceration without foreign body of right eyelid and periocular area, subsequent encounter

== ENCOUNTER 2023-04-20 10:20 | Outpatient (CLI) | payer MEDICARE, SELFPAY ==
--- NOTE | 2023-04-20 10:15 | RT.EKG_ITS ---
APPROVED REPORT Exam: Resting ECG Reason for Exam: Chest pressure. SOB Patient Location: O HR:56 bpm ECG Measurements Heart Rate 56 AXIS MT 233 P 57 QRSd 96 QRS -19 QT 442 T 17 QTc 427 Conclusion Sinus rhythm...normal P axis, V-rate 50- 99 Prolonged MT interval...MT >220, V-rate 50- 90 Borderline left axis deviation...QRS axis (-15,-29) I have reviewed and interpreted ECG and agree with software generated interpretation.
== END 2023-04-20 10:21 | disposition home or self-care (01) ==
LOC: DI.CM 10:20
PROVIDERS: PCP Nurse Practitioner Adult Health; Visit Provider Physician Assistant
DX: R06.02 Shortness of breath (principal); R07.9 Chest pain, unspecified
CPT/HCPCS: 93010

== ENCOUNTER 2023-04-20 13:16 | Emergency (ER) | payer MEDICARE, SELFPAY ==
--- NOTE | 2023-04-20 13:15 | RT.EKG_ITS ---
APPROVED REPORT Exam: Resting ECG Reason for Exam: Chest pain Patient Location: E HR:72 bpm ECG Measurements Heart Rate 72 AXIS TX 206 P 65 QRSd 101 QRS -14 QT 432 T 22 QTc 453 Conclusion Sinus rhythm...normal P axis, V-rate 60- 99 Ventricular premature complex...V complex w/ short R-R interval Low voltage, precordial leads...precordial leads <1.0mV Abnrm R prog, consider ASMI or lead placement...Q >30mS, diminished R, V1-V2
[2023-04-20 13:21] VITALS: BP 127/72; PULSE 66; RESP 16; TEMP 36.5; O2SAT 100
--- NOTE | 2023-04-20 14:00 | DI.CT_ITS ---
Exam(s) CT CHEST PE CTA EXAM: CT CHEST PE CTA CLINICAL HISTORY: left sided pleuritic pain. TECHNIQUE: Imaging Protocol: Axial CT angiography was performed with multi-slice acquisition and mu lti-planar and/or 3D reconstructions. CONTRAST MATERIAL: Intravenous: Omnipaque 350 contrast volume:100 mL COMPARISON: No exams were available for comparison FINDINGS: The examination is limited due to patient motion artifact. Tracheobronchial tree: Patent where visualized. Pulmonary parenchyma: Calcified granulomas present. No focal consolidating infiltrates are present. No noncalcified pulmonary nodules are seen. No architectural distortion. Pulmonary Arteries: No evidence of filling defect to suggest pulmonary emboli. Mediastinum and Aileen: No dominant adenopathy or fluid collection. The esophagus is unremarkable. Th ere is a small hiatal hernia. Visualized thyroid gland: Unremarkable. Pleura: No effusion or pneumothorax. Heart: Cardiomegaly. No coronary artery calcifications are seen. No pericardial effusion. Aorta: Thoracic aorta non-dilated. No evidence of dissection. Upper abdomen: Unremarkable. Soft tissues: Unremarkable. Bones: Within normal limits for the patient's age. IMPRESSION: 1. No evidence of pulmonary embolism, thoracic aortic dissection or aneurysm. 2. Findings were discussed with the emergency department at 3:44 p.m. on 04/20/2023. RADIATION DOSE DELIVERED: 440.94mGy.cm Total DLP DATA REPOSITORY: All CT scans at this facility are submitted to the National Radiology Data Registry (NRDR) Dose Index Registry (DIR) with the [employer] (A[employer]). RADIATION OPTIMIZATION: All CT scans at this facility use at least one of these dose optimization te chniques: automated exposure control; mA and/or kV adjustment per patient size (includes targeted exa ms where dose is matched to clinical indication); or iterative reconstruction.
--- NOTE | 2023-04-20 14:11 | ED.GENADUL_ITS ---
HPI General Stated Complaint: Chest Pain Mode of arrival: ambulatory. PUJA: 3 Date/Time Provider Initiated Documentation: 04/20/23 13:39. Limitations to Documentation: no limitations. Information obtained by: patient. History of Present Illness left sided chest pain when taking deep breaths mild aching day(s) (3) Other factors that worsen symptoms (deep breaths) no other symptoms.; denies cough, fever/chills and shortness of breath none Related Data Home Medications Medication Instructions Recorded Confirmed calcium carbonate 600 mg-vitamin 1 ea PO DAILY 09/20/12 04/20/23 D3 5 mcg (200 unit) tablet multivitamin (Daily Multi-Vitamin 1 ea PO DAILY 09/20/12 04/20/23 tablet) ascorbic acid (vitamin C) 1,000 mg 1,000 mg PO DAILY 04/04/17 04/20/23 tablet (Vitamin C) loratadine 10 mg tablet 10 mg PO DAILY 05/22/22 04/20/23 acetaminophen 500 mg tablet 1,000 mg (2 x 500 mg) PO Q8H PRN 05/23/22 04/20/23 pain #90 tabs Previous Rx's Medication Instructions Recorded acetaminophen 500 mg tablet 1,000 mg (2 x 500 mg) PO Q8H PRN 05/23/22 pain #90 tabs Allergies Allergy/AdvReac Type Severity Reaction Status Date / Time No Known Drug Allergies Allergy Verified 04/20/23 13:25 Review of Systems All systems reviewed & are unremarkable except as noted in HPI and below Constitutional Constitutional: Denies chills, Denies fever(s) and Denies weakness Cardiovascular Cardiovascular: Reports chest pain and Denies dyspnea Respiratory Respiratory: Denies cough and Denies dyspnea Gastrointestinal Gastrointestinal: Denies abdominal pain, Denies nausea and Denies vomiting Musculoskeletal Musculoskeletal: Denies joint swelling Neurologic Neurologic: Denies weakness PFSH All Active Problems (Updated 04/20/23 @ 16:02 by Davie Gonzalez MD) Chest pain, pleuritic (Acute) Osteopenia of left hip (Chronic ~2018) T-score -2.3 Medical History Fracture of ulnar styloid (01/03/19) Distal radius fracture, right (01/03/19) Menopause (~2005) Elevated blood-pressure reading, without diagnosis of hypertension (06/15/15) Surgical History 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) History of open reduction and internal fixation (ORIF) procedure R wrist Hx of colonoscopy (~2019) Ligation of fallopian tube Family History Mother , cancer, malignant mixed mesodermal, chondrosarcomamatous comp at age 75. Stomach cancer Essential hypertension Father , CAD at age 73, cardiac arrest due to a fib, CHF. CAD (coronary artery disease) Sister Essential hypertension Paternal Grandfather , 79, cerebrovascular, hypertensive, cardiovascular Essential hypertension Paternal Grandmother , 78 anoxic encephalopathy No problems noted. Maternal Grandfather , 60, cancer No problems noted. 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 Pets and animals: Yes Sexually active: Yes Current gender identity: female What is your relationship status?: How often do you talk on the phone with friends or family?: once per week How often do you get together with friends or relatives?: once per week Panel score (0-1 are the most socially isolated patients): 0 What type of physical activity do you participate in: walking, regular exercise and other Details: goes to gym 3x/week Frequency: 3-4 times per week Seatbelt use: always Drive 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: No Working smoke detector in home: Yes Fire extinguisher in home: Yes Carbon monox detector in home: Yes Do you feel safe at home: Yes Do you feel safe in your relationship?: Yes Victim of physical abuse: No Victim of emotional abuse: No Exam Const General: no acute distress Orientation: alert HENMT Head: normal to inspection Ears: external ears normal General nose exam: external nose normal Mouth: moist mucous membranes Eyes General: appearance normal, both eyes and all related structures Neck Neck: normal visual inspection Resp Effort & Inspection: normal respiratory effort and able to speak in complete sentences Auscultation: clear to auscultation bilaterally Cardio Jugular venous pressure: no JVD Rate: regular rate Heart Sounds: no murmurs Skin General skin exam: no rashes or lesions noted Neuro General: patient alert and patient oriented x3 Extrem General: normal to inspection Psych Mental Status: mental status grossly normal Course Vital Signs Vital signs: Vital Signs Temperature 36.5 C 04/20/23 13:21 Pulse 66 04/20/23 13:21 Respiratory Rate 16 04/20/23 13:21 Blood Pressure 127/72 04/20/23 13:21 Pulse Oximetry 100 04/20/23 13:21 Temperature 36.5 C 04/20/23 13:21 Pulse 66 04/20/23 13:21 Respiratory Rate 16 04/20/23 13:21 Respiratory Effort Normal, Non-Labored 04/20/23 13:50 Respiratory Depth Normal 04/20/23 13:50 Respiratory Pattern Normal 04/20/23 13:50 Blood Pressure 127/72 04/20/23 13:21 Blood Pressure Position Sitting 04/20/23 13:21 Pulse Oximetry 100 04/20/23 13:21 Oxygen Delivery Method Room Air 04/20/23 13:21 Oxygen Flow Rate 0 04/20/23 13:21 Medical Decision Making 68 yo female with no significant pmhx and no prior cardiac history comes in with 3 days of left sided anterior chest discomfort when she takes a deep breath in only. If she is not taking a deep breath she has no pain. She denies pain with exertion, diaphoresis, n/v, abdominal pain, dyspnea, cough, fevers/chills. She appears well on exam speaking clearly in no distress. She is caox4, clear lung sounds, no murmurs, soft nontender abdomen. Denies any falls or trauma, she does exercise regularly but can't remember hurting her chest. She has no rashes on her skin on her chest. Suspect pleurisy vs chest wall pain but will check troponin, and obtain cta to evaluate for ptx vs PE. No tearing back pain to suggest dissection pt stable, imaging and labs unremarkable and given over 3 hours of symptoms do not feel delta troponin indicated. Suspect pleurisy but could be chest wall pain as well, advised to f/u with pcp and return precautions given Differential Diagnosis Differential Diagnosis: chest wall pain, pe, ptx, pleurisy Medical Records Medical records reviewed: Yes I reviewed the patient's medical records. Imaging Data Radiologic Study: Attestation: I personally reviewed and interpreted this imaging study as follows: Imaging: CT Scan Radiologist's impression: Exam(s) a CT:CT chest PE CTA Exam(s) CT CHEST PE CTA EXAM: CT CHEST PE CTA CLINICAL HISTORY: left sided pleuritic pain. TECHNIQUE: Imaging Protocol: Axial CT angiography was performed with multi- slice acquisition and multi-planar and/or 3D reconstructions. CONTRAST MATERIAL: Intravenous: Omnipaque 350 contrast volume:100 mL COMPARISON: No exams were available for comparison FINDINGS: The examination is limited due to patient motion artifact. Tracheobronchial tree: Patent where visualized. Pulmonary parenchyma: Calcified granulomas present. No focal consolidating infiltrates are present. No noncalcified pulmonary nodules are seen. No zofia ectural distortion. Pulmonary Arteries: No evidence of filling defect to suggest pulmonary emboli. Mediastinum and Aileen: No dominant adenopathy or fluid collection. The esophagus is unremarkable. There is a small hiatal hernia. Visualized thyroid gland: Unremarkable. Pleura: No effusion or pneumothorax. Heart: Cardiomegaly. No coronary artery calcifications are seen. No pericardial effusion. Aorta: Thoracic aorta non-dilated. No evidence of dissection. Upper abdomen: Unremarkable. Soft tissues: Unremarkable. Bones: Within normal limits for the patient's age. IMPRESSION: 1. No evidence of pulmonary embolism, thoracic aortic dissection or aneurysm. 2. Findings were discussed with the emergency department at 3:44 p.m. on 04/20/2023. Lab Data Lab results reviewed: Yes I reviewed the patient's lab results. ECG Data Attestation: I personally reviewed and interpreted this ECG (s) as follows: Prior ECG tracings: available for review Interpretation: sinus rate of 72, pr 206, no stemi Quality:SDOH Health Related Social Needs: No Data to Display Discharge Plan Disposition Patient Disposition: Home Condition: Stable Discharge Details Clinical Impression: Chest pain, pleuritic Primary Care Provider: Jeanine French ED Provider: Davie Gonzalez Home Meds and New Rx's Prescriptions: Continued multivitamin [Daily Multi-Vitamin] 1 EACH tablet 1 ea PO DAILY calcium carbonate-vitamin D3 1 EACH tablet 1 ea PO DAILY ascorbic acid (vitamin C) [Vitamin C] 1,000 MG tablet 1,000 mg PO DAILY loratadine 10 mg Tablet 10 mg PO DAILY acetaminophen 500 mg tablet 1,000 mg PO Q8H PRN Qty: 90 0RF Rx Instructions: Take two tablets up to every 8 hours as needed for pain Discharge Instructions Instructions: Chest Pain (ED) Additional Instructions: your ekg, lab work and cat scan did not show concerning findings at this time if pain persists next week follow up with your primary care provider if you feel more ill, have severe worsening pain or difficulty breathing return to the emergency department
[2023-04-20 14:38] LABS: Abs Immature Grans 0.04 10^3/uL (0.0-0.06); HCT 45.8 % (36.0-46.0); HGB 14.9 g/dL (11.2-15.7); MCH 28.3 pg (27.0-33.0); MCHC 32.5 % (32.0-36.0); MCV 87 fL (80-95); MPV 9.8 fL (8.0-11.0); Platelet Count 492 10^3/uL (130-400); RBC 5.27 10^6/uL (3.93-5.22); RDW-SD 41.1 fL; WBC 13.91 10^3/uL (4.4-10.8)
[2023-04-20 14:54] LABS: Absolute Lymphocyte Count 6.26 10^3/uL (1.2-3.4); Absolute Monocyte Count 0.42 10^3/uL (0.1-0.8); Absolute Neutrophil Count 7.23 10^3/uL (1.2-6.7); Atypical Lymphocytes % 1
[2023-04-20 14:55] LABS: Diff Comment Manual Differential; RBC Morphology Normal
[2023-04-20 14:59] LABS: ALT 22 U/L (14-59); AST 24 U/L (15-37); Albumin 4.4 g/dL (3.4-5.0); Alkaline Phosphatase 82 U/L (46-116); Anion Gap 7.5 mmol/L (3-11); BUN 21 mg/dL (7-18); Bilirubin, Total 0.6 mg/dL (0.2-1.0); CO2 31.5 mmol/L (21.0-32.0); CREATININE 0.9 mg/dL (0.55-1.02); Calcium 11.1 mg/dL (8.5-10.1); Chloride 102 mmol/L (98-107); Estimated GFR 68.77 (mL/min/1.73m2); Glucose 55 mg/dL (74-106); Magnesium 2.4 mg/dL (1.8-2.4); Potassium 3.5 mmol/L (3.5-5.1); Sodium 141 mmol/L (136-145); Total Protein 8.5 g/dL (6.4-8.2); Troponin I < 50 ng/L (< or =60)
[2023-04-20] MEDS: Normal Saline - Diluent 50 ML VIAL IJ (15:06)
[2023-04-20] MEDS: Omnipaque 350 MG/ML 100 ML BTL IJ (15:06)
[2023-04-20 16:05] VITALS: BP 132/80; PULSE 79; RESP 17; TEMP 36.8; O2SAT 99
== END 2023-04-20 16:11 | disposition home or self-care (01) ==
PROVIDERS: Emergency Provider Emergency Medicine; PCP Nurse Practitioner Adult Health
DX: R07.89 Other chest pain (principal); R94.31 Abnormal electrocardiogram [ECG] [EKG]
CPT/HCPCS: 36415; 71275; 80053; 93005; 99285; 83735; 84484; 85025; 93010; 99284; J3490

== ENCOUNTER 2023-05-10 04:58 | Outpatient (CLI) | payer MEDICARE, SELFPAY ==
[2023-05-10 12:48] LABS: HCT 38.4 % (36.0-46.0); HGB 12.7 g/dL (11.2-15.7); MCH 28.3 pg (27.0-33.0); MCHC 33.1 % (32.0-36.0); MCV 86 fL (80-95); MPV 9.5 fL (8.0-11.0); Platelet Count 353 10^3/uL (130-400); RBC 4.48 10^6/uL (3.93-5.22); RDW 12.9 % (11.7-14.6); WBC 11.98 10^3/uL (4.4-10.8)
[2023-05-10 13:07] LABS: Anion Gap 4.7 mmol/L (3-11); BUN 19 mg/dL (7-18); CO2 31.3 mmol/L (21.0-32.0); CREATININE 0.9 mg/dL (0.55-1.02); Calcium 10.3 mg/dL (8.5-10.1); Chloride 105 mmol/L (98-107); Estimated GFR 68.77 (mL/min/1.73m2); Glucose 85 mg/dL (74-106); Potassium 4.2 mmol/L (3.5-5.1); Sodium 141 mmol/L (136-145)
[2023-05-10 13:21] LABS: Absolute Basophil Count 0.12 10^3/uL (0.0-0.2); Absolute Eosinophil Count 0.12 10^3/uL (0.0-0.7); Absolute Lymphocyte Count 6.23 10^3/uL (1.2-3.4); Absolute Monocyte Count 0.36 10^3/uL (0.1-0.8); Absolute Neutrophil Count 5.15 10^3/uL (1.2-6.7); Atypical Lymphocytes % 2; Diff Comment Manual Differential; RBC Morphology Normal
[2023-05-10 21:13] LABS: Ionized Calcium 1.34 mmol/L (1.14-1.35)
== END 2023-05-10 04:59 | disposition home or self-care (01) ==
LOC: LBO 04:58
PROVIDERS: Absent Provider Nurse Practitioner Adult Health; PCP Nurse Practitioner Adult Health; Visit Provider Nurse Practitioner Adult Health
DX: D72.829 Elevated white blood cell count, unspecified (principal); D75.839 Thrombocytosis, unspecified; E83.52 Hypercalcemia; R07.81 Pleurodynia
CPT/HCPCS: 36415; 80048; 82330; 85025

== ENCOUNTER → 2023-05-15 02:48 | Outpatient (CLI) | payer MEDICARE, SELFPAY ==
--- NOTE | 2023-05-15 09:18 | DI.RAD_ITS ---
Exam(s) XR CHEST 2V PA LATERAL EXAM: XR CHEST 2V PA LATERAL CLINICAL HISTORY: Cardio on CT--on CXR too?;? acute process,pleuritic chest pain,cardiomegaly TECHNIQUE: 2D digital imaging was performed. COMPARISON: CT CT CHEST PE CTA from 04/20/2023 FINDINGS: HEART: Borderline enlargement. Aorta: Not dilated. PULMONARY VASCULATURE: Normal. LUNGS: Clear. PLEURAL SPACE: No pleural effusion or pneumothorax. BONE:Unremarkable for age. Soft tissues: Unremarkable. IMPRESSION: No acute abnormality. DATA REPOSITORY: RADIATION DOSE DELIVERED:
== END ==
PROVIDERS: PCP Nurse Practitioner Adult Health; Visit Provider Nurse Practitioner Adult Health
DX: D72.829 Elevated white blood cell count, unspecified (principal); I51.7 Cardiomegaly; R07.81 Pleurodynia
CPT/HCPCS: 71046

== ENCOUNTER → 2023-05-16 10:09 | Outpatient (CLI) | payer MEDICARE, SELFPAY ==
--- NOTE | 2023-05-16 12:30 | DI.US_ITS ---
APPROVED REPORT EXAM: Comprehensive 2D, Doppler, and color-flow Echocardiogram Patient Location: Out-Patient Equipment Cleaner And Tester: Octavio Aceves RDCS (AE) Indications: Cardiomegaly, rule out underlying valvular disease Conclusion Atria are moderately dilated, ventricles normal Normal LV function, EF 60-65%. Normal RV function. Anatomically normal valves. Moderate MR, moderate TR No intracardiac shunt No pericardial effusion. Wall motion Left Ventricle The left ventricle is normal size. Left ventricular systolic function is normal. The left ventricular ejection fraction is within the normal range. There is normal left ventricular wall thickness. There is normal LV segmental wall motion. There is no ventricular septal defect visualized. LVEF is 60-65% . Right Ventricle The right ventricle is normal size. The right ventricular systolic function is normal. Atria The left atrium size is normal. Right atrium is moderately dilated. The interatrial septum is intact with no evidence for an atrial septal defect. Aortic Valve The aortic valve is normal in structure. Aortic valve is trileaflet. There is no aortic valvular sten osis. No aortic regurgitation is present. Mitral Valve The mitral valve is normal in structure. No evidence of mitral valve stenosis. Mild to moderate lisbet l regurgitation. Tricuspid Valve The tricuspid valve is normal in structure. There is no tricuspid valve stenosis. Mild to moderate tr icuspid regurgitation. Unable to assess PA pressure. Pulmonic Valve The pulmonary valve is normal in structure. There is no pulmonic valvular stenosis. There is no pulmo bart valvular regurgitation. Great Vessels The aortic root is normal in size. The ascending aorta is mildly dilated. Aortic arch is normal in ca liber. IVC is normal in size and collapses >50% with inspiration. Pericardium There is no pericardial effusion. 2D Dimensions IVSD d PLAX 0.90 cm F: 0.6-1.0 Ao Root d 3.14 cm F: 2.7 - 3.3 LVPW d PLAX 0.87 cm F: 0.6 - 1.0 Ao Asc Diam d 3.66 cm F: 2.3 - 3.1 LVID d PLAX 4.56 cm F: 3.8 - 5.2 LVDs 3.12 cm F: 2.2 - 3.5 LV EF Teichholz 59.6 % FS 31.59 % LV EDV (Teich) 95.6 mL LV ESV (Teich) 38.6 mL Stroke Vol Index (Teich) 31.14 M-Mode TAPSE 2.43 cm (M/F) >1.7 Auto EF LV EDV A4C 126.4 mL LV EDV A2C 122.0 mL LV EDV BP 130.4 mL LV ESV A4C 47.9 mL LV ESV A2C 42.7 mL LV ESV BP 46.1 mL LVEF(%) A4C 62.1 % LVEF(%) A2C 65.0 % LVEF(%) BP 64.6 % LV SV A4C 78.4 ml LV SV A2C 79.2 ml LV SV BP 84.2 ml LV CO A4C 5.0 L/min LV CO A2C 4.7 L/min LV CO BP 4.8 L/min HR A4C 63.38 BPM HR A2C 59.11 BPM LV EDV Index (BP) LA Volume LA Length A4C 5.0 cm LA Length A2C 5.2 cm LA Area A4C s 12.36 cm2 LA Area A2C s 15.19 cm2 LA Vol A4C A-L 26.01 mL LA Vol A2C A-L 37.61 mL LA Vol Biplane A-L 32.0 mL LA Vol/BSA A4C A-L LA Vol/BSA A2C A-L LA Vol/BSA BP A-L 17.5 mL/m2 LA Vol A4C MOD 24.5 mL LA Vol A2C MOD 35.2 mL LA Vol BP MOD 29.9 mL RA Volume RA Area A4C 18.3 cm2 RA ESV A4C (A-L) 59.7mL RA Vol/BSA A4C A-L RA Length A4C 4.7 cm RA ESV A4C (MOD) 56.2mL LV Diastology MV E' medial 0.082 (>0.07 m/s) MV E Vmax 0.69 (0.4-1.3 m/s) MV E/E' MED 8.42 (<14) MV A Vmax 0.85 (0.4-1.3 m/s) MV E' lateral 0.108 (>0.1 m/s) E/A Ratio 0.8 MV E/E' LAT 6.40 (<14) MV E' Average 0.095 m/s MV E/E'(average) 7.28 Aortic Valve AoV Vmax 1.33 m/s LVOT Vmax 1.20 m/s AoV Peak Grad 7.1 mmHg LVOT Peak Grad 5.8 mmHg AoV Area (Vmax) 2.30 cm2 LVOT VTI 0.293 m AoV VTI 0.320 m LVOT Mean Grad 3.2 mmHg AoV Mean Simone. 0.96 m/s LVOT SV 74.52 mL AoV Mean Grad 4.1 mmHg LVOT Diam s 1.75 cm AoV Area (VTI) 2.33 cm2 Velocity Ratio 0.90 Mitral Valve MV DT 174 (160-240 msec) MR Vmax 6.16 m/s MV Vmax TIPS 0.82 m/s MR VTI 2.285 m MV Mean Grad 1.3 (<2mmHg) MR Peak Grad 152.0 mmHg MV VTI 0.245 m MR Mean Grad 98.8 mmHg MR PISA Radius 0.50 cm MR Aliasing Velocity 0.36 m/s Pulmonary Valve PV Vmax 0.67 (0.5-1.5 m/s) RVOT Vmax 0.37 m/s PV Peak Grad 1.8 mmHg RVOT Peak Gr. 0.5 mmHg PV Mean Simone 0.45 m/s RVOT VTI 0.087 m PV Mean Grad 1.0 mmHg RVOT Mean Gr. 0.3 mmHg
== END ==
PROVIDERS: PCP Nurse Practitioner Adult Health; Visit Provider Nurse Practitioner Adult Health
DX: I51.7 Cardiomegaly (principal)
CPT/HCPCS: 93306

== ENCOUNTER 2023-05-24 04:46 | Outpatient (CLI) | payer MEDICARE, SELFPAY ==
[2023-05-24 10:51] LABS: HCT 40.4 % (36.0-46.0); HGB 13.2 g/dL (11.2-15.7); MCH 28.3 pg (27.0-33.0); MCHC 32.7 % (32.0-36.0); MCV 87 fL (80-95); Platelet Count 386 10^3/uL (130-400); RBC 4.67 10^6/uL (3.93-5.22); RDW 13.4 % (11.7-14.6); RDW-SD 41.8 fL; WBC 17.36 10^3/uL (4.4-10.8)
[2023-05-24 11:26] LABS: Absolute Eosinophil Count 0.35 10^3/uL (0.0-0.7); Absolute Lymphocyte Count 8.68 10^3/uL (1.2-3.4); Absolute Monocyte Count 0.35 10^3/uL (0.1-0.8); Absolute Neutrophil Count 7.99 10^3/uL (1.2-6.7); Atypical Lymphocytes % 6; MPV 9.4 fL (8.0-11.0)
[2023-05-24 11:27] LABS: Diff Comment Manual Differential; RBC Morphology Normal
[2023-05-24 11:47] LABS: ALT 20 U/L (14-59); AST 18 U/L (15-37); Albumin 3.6 g/dL (3.4-5.0); Alkaline Phosphatase 74 U/L (46-116); Anion Gap 6.7 mmol/L (3-11); BUN 15 mg/dL (7-18); Bilirubin, Total 0.5 mg/dL (0.2-1.0); CO2 32.3 mmol/L (21.0-32.0); CREATININE 0.9 mg/dL (0.55-1.02); Calcium 10.1 mg/dL (8.5-10.1); Chloride 106 mmol/L (98-107); Estimated GFR 68.77 (mL/min/1.73m2); Glucose 80 mg/dL (74-106); Potassium 3.7 mmol/L (3.5-5.1); Sodium 145 mmol/L (136-145); Total Protein 7.2 g/dL (6.4-8.2)
[2023-05-24 11:51] LABS: C-Reactive Protein < 0.50 mg/dL (<or=0.5)
[2023-05-28 21:48] LABS: Blastomyces Ag Result Not Detected; Blastomyces Ag Value Not Detected
== END 2023-05-24 04:47 | disposition home or self-care (01) ==
LOC: LBO 04:47
PROVIDERS: Absent Provider Nurse Practitioner Adult Health; PCP Nurse Practitioner Adult Health; Visit Provider Nurse Practitioner Adult Health
DX: D75.839 Thrombocytosis, unspecified (principal); E83.52 Hypercalcemia; R07.81 Pleurodynia; D72.829 Elevated white blood cell count, unspecified
CPT/HCPCS: 36415; 80053; 87449; 99213; 73502; 85025; 86140

== ENCOUNTER 2023-05-24 10:20 | Outpatient (CLI) | payer MEDICARE, SELFPAY ==
--- NOTE | 2023-05-24 08:15 | DI.RAD_ITS ---
Exam(s) XR HIP RT AP LAT ONLY EXAM: XR HIP RT AP LAT ONLY CLINICAL HISTORY: s/p right KEVIN. TECHNIQUE: 2D digital imaging was performed. Two views COMPARISON: CR XR HIP RT COMPLETE AP PELVIS from 06/05/2022 FINDINGS: BONES: No acute fracture is present. No bony destructive lesion is seen. JOINTS: No dislocation present. No change in alignment right hip prosthesis. SOFT TISSUE: Normal. IMPRESSION: No acute abnormality. DATA REPOSITORY: RADIATION DOSE DELIVERED:
== END 2023-05-24 10:21 | disposition home or self-care (01) ==
LOC: DIORS 10:21
PROVIDERS: PCP Nurse Practitioner Adult Health; Referring Provider Nurse Practitioner Adult Health; Visit Provider Physician Assistant
DX: Z96.641 Presence of right artificial hip joint (principal); Z47.1 Aftercare following joint replacement surgery
CPT/HCPCS: 73502

== ENCOUNTER → 2023-05-29 03:36 | Outpatient (CLI) | payer MEDICARE, SELFPAY ==
--- NOTE | 2023-05-29 06:00 | ETT_ITS ---
APPROVED REPORT Exam: Exercise Treadmill Patient Location: Out-Patient Room/Bed: Stress Nurse: Radha Jimenez RN Ordering Provider:PRIMOWALLY MULLEN, Contact Number: [phone] BMI: 26.15 Baseline Rhythm: Sinus Rhythm Comment: Occasional PAC's, ? sinus arrhytmia Indications: Chest pain, SOB Medical History Medical History: Right atril dilatation, thrombocytosis, calcified granuloma of lung Cardiac Medications: None Cardiac Risk Factors: Family hx Previous Cardiac Procedures: None Pretest Chest Pain Characteristics: 05/19 chest tightness Exercise History: Indeterminate Physical Disabilities: None Lung Sounds: Clear to auscultation Heart Sounds: Regular Stress Test Details Test: Exercise stress testing was performed using a Alex protocol. Rest Stress HR Resting HR Supine: 63 bpm Max Heart Rate (APMHR): 150 bpm Resting HR Standin bpm Target HR (85% APMHR): 128 bpm Max HR Achieved: 133 bpm % of APMHR: 89 Recovery HR: 68 bpm HR response to stress: Normal HR response to stress BP Resting BP Supine: 1121/76 mmHg Resting BP Standin/84 mmHg Max BP: 162/92 mmHg Recovery BP: 138/84 mmHg BP response to stress: Normal blood pressure response to stress. ECG Resting ECG: Sinus Rhythm, ? sinus arrhythmia Ectopy: Occasional PAC's Comment: T wave inversion lead III Stress ECG: Sinus Tachycardia, ? sinus arrhythmia ST Change: No significant ST segment changes noted Arrhythmia: Occasional PAC's Comment: T wave noted to be upright in lead III Recovery ECG: Sinus Rhythm, ? sinus arrhythmia Recovery ST Change: No significant ST segment changes noted Recovery Arrhythmia: Occasional PAC's Clinical Reason for Termination: Fatigue, Target HR Achieved Stress Symptoms: 06/16 chest tightness Exercise duration: 08 min57 sec Highest Stage Reached: Stage 2: 2.5 mph at 12% grade. Exercise capacity: 10.16 METs Angina Score: Non-Limiting Rate Pressure Product: 42481 Stress ECG Conclusion 1. Resting electrocardiogram was normal 2. Patient exercised on the Alex protocol and completed 10.16 Mets, above average exercise capacity 3. Normal heart rate and blood pressure response to exercise. The patient achieved 89% rate for age 4. There was no electrocardiographic evidence of myocardial ischemia 5. There were no significant dysrhythmias Walls Treadmill Score is which is Moderate risk. Stress Test Summary STAGE Time (mins) Speed (mph) Grade (%) HR BP SpO2 SYMPTOMS METS Supine 63 112/76 97 2/10 resting chest pain Standing 71 118/84 1 3 1.7 10 93 142/88 98 4.5 2 6 2.5 12 98 7 1 min recovery 112 162/92 98 3 min recovery 68 152/82 6 min recovery 68 138/84 96 Patient noted chest tightness increased to 3/10 and back to 2/10 baseline chest tightness during agapito very.
== END ==
PROVIDERS: PCP Nurse Practitioner Adult Health; Visit Provider Nurse Practitioner Adult Health
DX: R07.9 Chest pain, unspecified (principal); R06.02 Shortness of breath; I51.7 Cardiomegaly
CPT/HCPCS: 93016; 93018; 93017

== ENCOUNTER 2023-05-31 01:50 | Outpatient (CLI) | payer MEDICARE, SELFPAY ==
[2023-05-31] MEDS: Levalbuterol HFA 15 GM INH 4 PUFF IH (08:45)
[2023-05-31] MEDS: Inhaler, Assist Device 1 EACH MC (08:46)
--- NOTE | 2023-05-31 14:10 | W.PFT ---
Date of service: 05/31/23 Time of Service: 08:00 Pulmonary Function Test Result Indications: Dyspnea Interpretation Spirometry: There is no airflow limitation.No bronchodilator response. Lung Volumes: Normal lung volumes Diffusion Capacity: Normal diffusion. Airway Pressure: Normal airways resistance Impression Normal pulmonary function testing Clinical Correlation therefore is recommended.
== END 2023-05-31 01:51 | disposition home or self-care (01) ==
LOC: RT 01:50
PROVIDERS: PCP Nurse Practitioner Adult Health; Visit Provider Nurse Practitioner Adult Health
DX: R06.00 Dyspnea, unspecified (principal)
CPT/HCPCS: 94060; 94726; 94729

== ENCOUNTER → 2023-06-07 09:18 | Outpatient (BNVA) | payer MEDICARE, SELFPAY | PROVIDERS: PCP Nurse Practitioner Adult Health; Referring Provider Nurse Practitioner Adult Health; Visit Provider Student in an Organized Health Care Education/Training Program | DX: R06.00 Dyspnea, unspecified (principal); R05.9 Cough, unspecified | CPT/HCPCS: 36415; 99215 ==

== ENCOUNTER 2023-06-07 13:10 | Outpatient (REF) | payer MEDICARE, SELFPAY ==
[2023-06-07 12:14] LABS: C-Reactive Protein < 0.50 mg/dL (<or=0.5)
[2023-06-07 12:24] LABS: TSH (W/Ref FT4) 1.79 uIU/mL (0.36-3.74)
== END 2023-06-07 13:11 | disposition home or self-care (01) ==
LOC: LBN 13:10
PROVIDERS: PCP Nurse Practitioner Adult Health; Referring Provider Student in an Organized Health Care Education/Training Program; Visit Provider Student in an Organized Health Care Education/Training Program
DX: R06.09 Other forms of dyspnea (principal); D72.829 Elevated white blood cell count, unspecified; R61 Generalized hyperhidrosis
CPT/HCPCS: 84443; 86140

== ENCOUNTER 2023-06-11 05:01 | Outpatient (CLI) | payer MEDICARE, SELFPAY ==
[2023-06-11 13:10] LABS: HCT 38.5 % (36.0-46.0); HGB 12.6 g/dL (11.2-15.7); MCH 28.4 pg (27.0-33.0); MCHC 32.7 % (32.0-36.0); MCV 87 fL (80-95); MPV 9.9 fL (8.0-11.0); Platelet Count 414 10^3/uL (130-400); RBC 4.44 10^6/uL (3.93-5.22); RDW-SD 41.4 fL; WBC 11.17 10^3/uL (4.4-10.8)
[2023-06-11 13:26] LABS: Absolute Basophil Count 0.11 10^3/uL (0.0-0.2); Absolute Monocyte Count 0.56 10^3/uL (0.1-0.8); Atypical Lymphocytes % 2; Bands % 1; Diff Comment Manual Differential; RBC Morphology Normal
== END 2023-06-11 05:02 | disposition home or self-care (01) ==
LOC: LBO 05:02
PROVIDERS: PCP Nurse Practitioner Adult Health; Referring Provider Nurse Practitioner Adult Health; Visit Provider Nurse Practitioner Adult Health
DX: D72.829 Elevated white blood cell count, unspecified (principal); R61 Generalized hyperhidrosis
CPT/HCPCS: 36415; 85025

== ENCOUNTER 2023-07-05 09:56 | Outpatient (CLI) | payer MEDICARE, SELFPAY | END 2023-07-05 09:57 | disposition home or self-care (01) | LOC: CARDOPNVT 09:56 | PROVIDERS: PCP Nurse Practitioner Adult Health; Visit Provider Nurse Practitioner Adult Health | DX: I51.7 Cardiomegaly | CPT/HCPCS: 93246 ==

== ENCOUNTER → 2023-07-09 11:14 | Outpatient (BNVA) | payer MEDICARE, SELFPAY | PROVIDERS: PCP Nurse Practitioner Adult Health; Referring Provider Nurse Practitioner Adult Health; Visit Provider Physician Assistant Surgical | DX: R06.00 Dyspnea, unspecified (principal); J45.909 Unspecified asthma, uncomplicated | CPT/HCPCS: 99214 ==

== ENCOUNTER 2023-07-26 07:09 | Outpatient (CLI) | payer MEDICARE, SELFPAY ==
--- NOTE | 2023-07-26 14:48 | W.CARDEVENT ---
Date of service: 07/26/23 Time of Service: 14:48 Cardiac Event Recorder Referring Provider:: Jeanine French Indications:: Mitral and tricuspid regurgitation Cardiac Event Note: This is a cardiac event monitor. Patient was monitored for 13 days and 9 hours Rhythm throughout was sinus. Average heart rate was 65. Minimum was 41, maximum 150. For the extra left there were rare ventricular ectopic beats There were occasional atrial premature beats There was no atrial fibrillation, no pauses greater than 3 seconds Mobitz 1 second-degree AV block (Wenckebach) was seen during sleep Symptoms were reported which generally correlated with sinus rhythm, also sinus tachycardia, rarely atrial premature beats
== END 2023-07-26 07:10 | disposition home or self-care (01) ==
LOC: CARDOPNVT 07:09
PROVIDERS: PCP Nurse Practitioner Adult Health; Visit Provider Internal Medicine Cardiovascular Disease
DX: I51.7 Cardiomegaly (principal); I44.1 Atrioventricular block, second degree; I34.0 Nonrheumatic mitral (valve) insufficiency
CPT/HCPCS: 93248

== ENCOUNTER 2023-07-27 02:57 | Outpatient (CLI) | payer MEDICARE, SELFPAY ==
[2023-07-27 09:10] LABS: Lipase 54 U/L (16-77)
== END 2023-07-27 02:58 | disposition home or self-care (01) ==
LOC: LBO 02:57
PROVIDERS: PCP Nurse Practitioner Adult Health; Visit Provider Nurse Practitioner Adult Health
DX: R07.89 Other chest pain (principal)
CPT/HCPCS: 36415; 83690

== ENCOUNTER → 2023-07-30 03:46 | Outpatient (CLI) | payer MEDICARE, SELFPAY ==
--- NOTE | 2023-07-30 08:30 | DI.US_ITS ---
Exam(s) US ABDOMEN EXAM: US ABDOMEN CLINICAL HISTORY: assess gallbladder,atypical chest pain,r07.89 TECHNIQUE: Ultrasound abdomen performed using standard protocol. COMPARISON: CT CT CHEST PE CTA from 04/20/2023 FINDINGS: ABDOMINAL AORTA AND IVC: Visualized portions normal caliber. PANCREAS: Normal where visualized. LIVER: There are 2 well-circumscribed echogenic nodules in the liver. The smaller measures 1.2 x 0.9 x 1.0 cm. The larger measures 1.1 x 1.0 x 1.3 cm. These likely reflect benign hepatic lesions sono graphically such as hemangiomas. Hepatopetal flow in the Portal Vein. The liver measures 12.4 cm venancio g. GALLBLADDER:No evidence of cholelithiasis. No evidence of wall thickening. No pericholecystic fluid i dentified. BILIARY SYSTEM: Common bile duct measures < 7 mm. No intrahepatic biliary ductal dilation. JENKINS'S SIGN: Negative. KIDNEYS: Kidneys are symmetric in size. No evidence of renal calculi. No evidence of hydronephrosis. No renal mass or cyst identified. SPLEEN: Not enlarged. ASCITES: None seen. IMPRESSION: 1. The gallbladder is unremarkable. No stones or biliary ductal dilatation. No evidence to suggest acute cholecystitis. 2. Two well-circumscribed sonographically benign-appearing lesions in the liver likely reflecting hem angiomas. DATA REPOSITORY:
== END ==
PROVIDERS: PCP Nurse Practitioner Adult Health; Visit Provider Nurse Practitioner Adult Health
DX: R07.89 Other chest pain (principal); K76.89 Other specified diseases of liver; Z13.818 Encounter for screening for other digestive system disorders
CPT/HCPCS: 76700

== ENCOUNTER → 2023-08-10 08:37 | Outpatient (BNVA) | payer MEDICARE, SELFPAY | PROVIDERS: PCP Nurse Practitioner Adult Health; Referring Provider Nurse Practitioner Adult Health; Visit Provider Student in an Organized Health Care Education/Training Program | DX: R06.00 Dyspnea, unspecified (principal) | CPT/HCPCS: 99214 ==

== ENCOUNTER 2023-08-13 05:43 | Outpatient (CLI) | payer MEDICARE, SELFPAY ==
[2023-08-13] MEDS: Albuterol HFA 18 GM 200 PUFF INH IH (15:29)
[2023-08-13] MEDS: Methacholine 100 MG VIAL IH (15:29)
[2023-08-13] MEDS: Inhaler, Assist Device 1 EACH MC (15:30)
--- NOTE | 2023-08-14 08:54 | W.PFT ---
Date of service: 08/13/23 Time of Service: 13:05 Pulmonary Function Test Result Indications: Cough Interpretation Spirometry: No baseline airflow obstruction. There was a 21% decrease in FEV1 with administration of 8.0mg/mL methacholine. Impression Positive methacholine challenge. Clinical Correlation therefore is recommended.
== END 2023-08-13 05:44 | disposition home or self-care (01) ==
LOC: RT 05:43
PROVIDERS: PCP Nurse Practitioner Adult Health; Visit Provider Student in an Organized Health Care Education/Training Program
DX: J45.909 Unspecified asthma, uncomplicated (principal)
CPT/HCPCS: 94060; 94070; J7674

== ENCOUNTER → 2023-11-08 09:38 | Outpatient (BNVA) | payer MEDICARE, SELFPAY | PROVIDERS: PCP Nurse Practitioner Adult Health; Referring Provider Nurse Practitioner Adult Health; Visit Provider Physician Assistant Surgical | DX: J45.909 Unspecified asthma, uncomplicated (principal); R06.00 Dyspnea, unspecified | CPT/HCPCS: 99214 ==

== ENCOUNTER 2023-11-15 01:46 | Outpatient (CLI) | payer MEDICARE, SELFPAY ==
[2023-11-15 10:23] LABS: Abs Immature Grans 0.02 10^3/uL (0.0-0.06); Absolute Basophil Count 0.04 10^3/uL (0.0-0.2); Absolute Eosinophil Count 0.12 10^3/uL (0.0-0.7); Absolute Lymphocyte Count 6.39 10^3/uL (1.2-3.4); Absolute Monocyte Count 0.59 10^3/uL (0.1-0.8); Absolute Neutrophil Count 4.63 10^3/uL (1.2-6.7); Basophils % 0.3 %; HCT 42.1 % (36.0-46.0); HGB 13.6 g/dL (11.2-15.7); Immature Grans % 0.2 %; Lymphocytes % 54.2 %; MCH 28.5 pg (27.0-33.0); MCHC 32.3 % (32.0-36.0); MCV 88 fL (80-95); MPV 9.4 fL (8.0-11.0); Neutrophils % 39.3 %; Platelet Count 364 10^3/uL (130-400); RBC 4.78 10^6/uL (3.93-5.22); RDW 13.1 % (11.7-14.6); RDW-SD 42.5 fL; WBC 11.79 10^3/uL (4.4-10.8)
[2023-11-15 10:47] LABS: Diff Comment Agrees w/ Instrument; RBC Morphology Normal
[2023-11-15 10:49] LABS: Anion Gap 6.4 mmol/L (3-11); BUN 18 mg/dL (7-18); CO2 30.6 mmol/L (21.0-32.0); CREATININE 0.9 mg/dL (0.55-1.02); Calcium 10.3 mg/dL (8.5-10.1); Chloride 106 mmol/L (98-107); Estimated GFR 68.77 (mL/min/1.73m2); Glucose 58 mg/dL (74-106); Potassium 3.9 mmol/L (3.5-5.1); Sodium 143 mmol/L (136-145)
== END 2023-11-15 01:47 | disposition home or self-care (01) ==
LOC: LBO 01:46
PROVIDERS: PCP Nurse Practitioner Adult Health; Visit Provider Nurse Practitioner Adult Health
DX: E83.52 Hypercalcemia (principal); D75.839 Thrombocytosis, unspecified; D72.829 Elevated white blood cell count, unspecified; R79.81 Abnormal blood-gas level
CPT/HCPCS: 36415; 80048; 85025

== ENCOUNTER 2023-11-19 03:45 | Outpatient (CLI) | payer MEDICARE, SELFPAY ==
[2023-11-19 22:23] LABS: Ionized Calcium 1.29 mmol/L (1.14-1.35)
[2023-11-20 15:29] LABS: Albumin 62.8 % (55.8-66.1); Albumin g/dL 4.2 g/dL (3.6-5.2); Total Protein 6.7 g/dL (6.3-8.2)
== END 2023-11-19 03:46 | disposition home or self-care (01) ==
LOC: LBO 03:46
PROVIDERS: PCP Nurse Practitioner Adult Health; Visit Provider Nurse Practitioner Adult Health
DX: E83.52 Hypercalcemia (principal); D72.829 Elevated white blood cell count, unspecified
CPT/HCPCS: 36415; 82330; 84165

== ENCOUNTER → 2024-01-04 09:03 | Outpatient (BNVA) | payer MEDICARE, SELFPAY | PROVIDERS: PCP Nurse Practitioner Adult Health; Referring Provider Nurse Practitioner Adult Health; Visit Provider Physical Therapy Assistant | DX: Z12.11 Encounter for screening for malignant neoplasm of colon (principal) ==

== ENCOUNTER 2024-01-18 10:39 | Day surgery (SDC) | payer MEDICARE, SELFPAY ==
--- NOTE | 2024-01-17 11:50 | PDOC.DSDIS_ITS ---
Date of service: 01/18/24 Time of Service: 13:41 Discharge Plan Disposition Patient Disposition: Home Condition: Good Discharge Details Reason For Visit: screening colonoscopy Attending Provider: Rene Toth Primary Care Provider: Jeanine French Home Meds and New Rx's Prescriptions: Continued albuterol sulfate 90 mcg/actuation HFA aerosol inhaler 2 puff inhalation Q4H PRN (Reason: shortness of breath or wheezing) Qty: 8.5 3RF multivitamin [Daily Multi-Vitamin] 1 EACH tablet 1 ea PO DAILY calcium carbonate-vitamin D3 1 EACH tablet 1 ea PO DAILY ascorbic acid (vitamin C) [Vitamin C] 1,000 MG tablet 1,000 mg PO DAILY fluticasone propion-salmeterol [Advair HFA] 115-21 mcg/actuation HFA aerosol inhaler 2 puff inhalation BID Qty: 12 5RF loratadine 10 mg Tablet 10 mg PO DAILY Discontinued bisacodyl [Dulcolax (bisacodyl)] 5 mg tablet,delayed release (DR/EC) 5 mg PO ONCE Qty: 4 0RF Rx Instructions: Take per colonoscopy instructions provided by ordering providers office polyethylene glycol 3350 17 gram/dose powder 17 g PO ONCE Qty: 238 0RF Rx Instructions: Take per colonoscopy instructions provided by ordering providers office Discharge Instructions Instructions: Colon polyps Additional Instructions: Rayo, we are able to complete your colonoscopy today without any difficulty. I hope you are comfortable during the procedure. Your prep was excellent, and I could see everything fine. I did find a single polyp in your rectum. It was quite small. This will be sent off for testing because the nature of the polyps determines the timing of the next colonoscopy. Those results typically take a week or 2, or we have them, the office will be in touch with the recommendations. This polyp was quite low in your rectum, and although the r emoval site is extremely small, you may experience a little bit of bleeding for the next few days. I do not anticipate tach, but I would not be surprised if it occurs. If you have anything, or have any questions in the meantime, please do not hesitate to ask. 1. If tolerated, consume a soft, low fiber diet for 1-2 days. [address] Do not drive, drink alcohol, operate machinery, make critical decisions, or do activities that require coordination or balance for 24 hours. 3. Because air was put into your colon during the procedure, expelling air from your rectum (passing gas or farting) is normal. 4. You may not have a bowel movement for 1-3 days because of the colonoscopy prep. This is normal. 5. Go directly to the emergency room if you notice any of the following: Develop chills (warm to touch), or if you have a thermometer and your temperature is above 101 Difficulty breathing or difficultly swallowing Persistent vomiting Severe abdominal pain, other than gas cramps Severe chest pain Black, tarry stools Any bleeding ? exceeding one tablespoon 6. Call your physician if the site where your intravenous was started becomes red, swollen, painful, and warm to touch. 7. Your physician has reviewed your pre-procedure medications. Please continue to take those medications as previously ordered. You will be given specific information/education regarding any changes to your medications before leaving. Stand Alone Forms: Anesthesia Discharge InstBoris Torres (DSU) Activity:: Activity as Tolerated Diet:: As Tolerated Discharge Orders Discharge Orders: Discharge Order (Routine); Ordered 01/17/24 Ordered By: Rene Toth DS: Diagnosis Discharge Diagnosis (1) Encounter for screening colonoscopy: Status: Acute Asessment and Plan: Follow-up polypectomy resolved
--- NOTE | 2024-01-17 11:51 | COLE_ITS ---
Date of service: 01/18/24 Time of Service: 13:43 Colonoscopy Report Date of procedure: 01/18/24 Pre-op diagnosis general: screening colonoscopy Post-op diagnosis procedure note: other (Rectal polyp) Procedure: colonoscopy with polypectomy Surgeon: Rene Toth Anesthesia Type: General:No Airway Estimated blood loss (mL): 5 Pathology: other (0.25 cm pedunculated rectal polyp) Complications: None Disposition: same day Indications: Rayo is a 68 year old woman who needs her next screening colonoscopy Prep: Miralax/Dulcolax Procedure Start Time: 13:17 Procedure End Time: 13:32 Retraction Time: 6 Findings: 0.25 cm pedunculated rectal polyp Procedure Description: After the induction of anesthesia, and with the patient in left lateral decubitus position, I began by performing an external anorectal exam.? Perineum and skin were normal, as was the anal verge.? There was no evidence of external hemorrhoids.? Next, I performed a digital rectal exam.? I did not appreciate any abnormal findings.? In the lower portion of the rectal vault was a 0.25 cm pedunculated rectal polyp. This was removed with cold forcep polypectomy. There is minimal bleeding. ? Using insufflation, I then advanced the colonoscope beyond the rectal folds and into the sigmoid colon before advancing towards the cecum.? The quality of the prep was excellent.? The scope was noted to be in the cecum by identification of the ileocecal valve and appendiceal orifice.? I then began withdrawing the colonoscope using repeated irrigation as necessary for full evaluation of the colonic mucosa. ?Once the scope was withdrawn to the level of the rectum, great care was taken to examine portions of the rectal folds.? Finally, the scope was withdrawn and the patient was brought to the same-day surgery recovery unit as the anesthetic wore off. ?The findings and instructions were shared with the patient prior to discharge. Carpio Bowel Prep Carpio Bowel Prep Right Colon: 3 Left Colon: 3 Transverse Colon: 3 Total Score: 9
[2024-01-18 11:01] VITALS: BP 122/91; PULSE 63; RESP 18; TEMP 36.6; O2SAT 97
[2024-01-18] MEDS: Lactated Ringers 1,000 ML 80 ML IV (11:20)
--- NOTE | 2024-01-18 12:36 | W.ANESPRE ---
General Info Date of Service Date Performed: 01/18/24 Height: 5 ft 6 in Weight: 73.6 kg Body Mass Index (BMI): 26.2 Surgical Procedure: Operation Date: 01/18/24 12:05 Proposed Procedure Side Surgeon jazmyn Toth MD Meds Allergies and Home Medications Allergies Allergy/AdvReac Type Severity Reaction Status Date / Time No Known Allergies Allergy Verified 01/18/24 10:59 Home Medication ?Medication ?Instructions ?Recorded calcium 600 mg (as 1 ea PO DAILY 09/20/12 carbonate)-vitamin D3 5 mcg (200 unit) tablet multivitamin (Daily Multi-Vitamin 1 ea PO DAILY 09/20/12 tablet) ascorbic acid (vitamin C) 1,000 mg 1,000 mg PO DAILY 04/04/17 tablet (Vitamin C) loratadine 10 mg tablet 10 mg PO DAILY 05/22/22 fluticasone propionate 115 2 puff inhalation BID #12 grams 08/14/23 mcg-salmeterol 21 mcg/actuation HFA inhaler (Advair HFA) albuterol sulfate 90 mcg/actuation 2 puff inhalation Q4H PRN 11/08/23 aerosol inhaler shortness of breath or wheezing #8.5 grams Current Visit Medications: Current Medications Generic Name Dose Route Start Last Admin Trade Name Freq PRN Reason Stop Dose Admin Hyoscyamine Sulfate 0.125 mg 01/17/24 11:52 Hyoscyamine 0.125 Mg Sl/Oral/Chew SL 02/16/24 11:51 DIRECTED PRN Ringer's Solution 1,000 mls @ 80 mls/hr 01/18/24 06:00 01/18/24 11:20 IV 01/18/24 23:59 80 mls/hr INFUSION [place] Administration IV Miscellaneous Supplies 1 each 01/18/24 06:00 Iv Access IV 01/18/24 23:59 DIRECTED [place] Ondansetron HCl 4 mg 01/17/24 11:52 Ondansetron 4 Mg/2 Ml Vial IVP 02/16/24 11:51 Q4H PRN PRN Nausea / Vomiting Sodium Chloride 0 ml 01/18/24 06:00 Normal Saline Flush 10 Ml Syr IV 01/18/24 23:59 PRN PRN Sodium Chloride 0 ml 01/18/24 06:00 Normal Saline 10 Ml Vial IJ 01/18/24 23:59 DIRECTED PRN Sterile Water 0 ml 01/18/24 06:00 Water,Injection,Sterile 10 Ml Vial IJ 01/18/24 23:59 DIRECTED PRN PFSH Active Problems Active Problems: Problem Status Onset Code Encounter for screening colonoscopy Acute Z12.11 Mobitz (type) I (Wenckebach's) atrioventricular block Acute ~07/2023 I44.1 Thrombocytosis Acute D75.839 Tricuspid regurgitation Acute I07.1 Mitral regurgitation Chronic I34.0 Leukocytosis Acute D72.829 Dyspnea Acute R06.00 Right atrial dilatation Acute ~05/2023 I51.7 Hypercalcemia Acute ~04/2023 E83.52 Osteopenia of left hip Chronic ~2019 M85.852 Medical History Medical History Calcified granuloma of lung Fracture of ulnar styloid (01/03/19) Distal radius fracture, right (01/03/19) Menopause (~2005) Elevated blood-pressure reading, without diagnosis of hypertension (06/15/15) Surgical History Surgical History 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) History of open reduction and internal fixation (ORIF) procedure R wrist Hx of colonoscopy (~2018) Ligation of fallopian tube Tobacco Smoking/Tobacco Use Status: Never Passive smoking exposure: No Alcohol Alcohol Intake: current Alcohol intake frequency: holidays/special occasions only Substance Use Substance use: Never Substance use type: does not use Vital Signs and Lab Results Vital Signs Most Recent Vital Signs in EMR: Most Recent Vital Signs Temp Pulse Resp BP Pulse Ox 36.6 C 63 18 122/91 H 97 01/18/24 11:01 01/18/24 11:01 01/18/24 11:01 01/18/24 11:01 01/18/24 11:01 Lab Results Blood Type / Crossmatch: No Data to Display Complete Blood Count: No Data to Display Complete Metabolic Panel: No Data to Display Liver Function Panel: No Data to Display Coagulation Panel: No Data to Display Cardiac Panel: No Data to Display Arterial Blood Gas: No Data to Display Venous Blood Gas: No Data to Display Pancreas Panel: No Data to Display Thyroid Panel: No Data to Display Infectious Disease: No Data to Display Blood Cultures: No Data to Display Toxicology Panel: No Data to Display Imaging and Studies Imaging and Studies Study information below may be from another EMR and interpreted by another provider. Please see original notes in EMR for more complete details. EKG Summary: 04/20/23 Conclusion Sinus rhythm...normal P axis, V-rate 60- 99 Ventricular premature complex...V complex w/ short R-R interval Low voltage, precordial leads...precordial leads <1.0mV Abnrm R prog, consider ASMI or lead placement...Q >30mS, diminished R, V1-V2 Stress Test Summary: 05/29/23 Stress ECG Conclusion 1. Resting electrocardiogram was normal 2. Patient exercised on the Alex protocol and completed 10.16 Mets, above average exercise capacity 3. Normal heart rate and blood pressure response to exercise. The patient achieved 89% rate for age 4. There was no electrocardiographic evidence of myocardial ischemia 5. There were no significant dysrhythmias Walls Treadmill Score is which is Moderate risk. Echocardiogram Summary: 05/16/23 Conclusion Atria are moderately dilated, ventricles normal Normal LV function, EF 60-65%. Normal RV function. Anatomically normal valves. Moderate MR, moderate TR No intracardiac shunt No pericardial effusion. Pulmonary Function Summary: 08/13/23 Pulmonary Function Test Result Indications: Cough Interpretation Spirometry: No baseline airflow obstruction. There was a 21% decrease in FEV1 with administration of 8.0mg/mL methacholine. Impression Positive methacholine challenge. Clinical Correlation therefore is recommended. Anesthesia Assessment and Plan Anesthesia History Personal History: No History of Anesthesia Complications Family History: No Family History of Anesthesia Complications Exercise Tolerance Exercise Tolerance: Metabolic Equivalents>4 Pertinent Negatives Pertinent Negatives: No Symptoms of GERD, No Major Cardiovascular Symptoms or Complaints and No Major Pulmonary Symptoms or Complaints Cardiac & Pulmonary Exam Cardiac Exam: Normal S1/S2 Heart Sounds Pulmonary Exam: Clear Bilateral Breath Sounds Cardiac and Pulmonary Comment:: uses inhaler for asthma approximately every other day Implantable Cardiac Device Does patient have a Pacemaker or an ICD?: No Airway Exam Known Difficult Airway: No Mallampati Class: 2 Mouth Opening: Normal (> 3cm) Thyromental Distance: Greater than 3 cm Neck Range of Motion: Full ROM Neck Circumference: Normal Teeth Condition: Normal Dentition ASA Classification ASA Score: ASA 2 Emergency Case?: No NPO Status NPO Status: NPO Clears >2 hours, Solids >8 hours Anesthesia Plan Resuscitation Status: Full Code Anesthesia Technique: General Anesthesia Airway Planned: Natural Airway Monitors Used: Standard Monitors Preoperative Comments:: 68 y/o female with history of Mobitz Type I, mitral regurg and asthma presents for colonoscopy screening. Her last screening was in 2013, which was unremarkable.
[2024-01-18 12:44] VITALS: BMI 26.2
--- NOTE | 2024-01-18 13:18 | BOWEL_PTH ---
PATIENT: Rayo Guthrie LOC: [facility] U#:[id number] AGE/SX: 68/F ROOM: RE01/18/[address]: Rene Toth MD : [id number] BED: DIS: 01/18/2024 SPEC #: [id number] RECD: 01/18/24 17:48 STATUS: [place] REQ #: [id number] ESTELLA: 01/18/24 13:[address]: Rene Toth DEPT: Surgical Specimen RECD BY: Kylah Ward ENTERED: 01/18/24 17:48 SP TYPE: Bowel OTHR DR: Jeanine French, LAZ Tissues: 1 - BIOPSY BOWEL Procedures: GROSS AND MICRO LEVEL 4 Comments: [id number]
[2024-01-18 13:39] VITALS: BP 110/84; PULSE 58; RESP 16; TEMP 36.4; O2SAT 100
[2024-01-18 14:04] VITALS: BP 138/96; PULSE 55; RESP 16; TEMP 36.5; O2SAT 98
--- NOTE | 2024-01-18 14:10 | W.ANESPOSTOP ---
Postoperative Evaluation Date, Time and Location Date Performed: 01/18/24 Time Performed: 14:10 Patient Location: Day Surgery Unit Vital Signs Most Recent Imported Vital Signs: Most Recent Vital Signs Temp Pulse Resp BP Pulse Ox 36.5 C 55 L 16 138/96 H 98 01/18/24 14:04 01/18/24 14:04 01/18/24 14:04 01/18/24 14:04 01/18/24 14:04 Pain Score Most Recent Pain Score: Most Recent Pain Score Pain Level 0 01/18/24 14:04 Assessment Mental Status: Awake (Alert & Oriented to Patient Baseline) Airway and Respiratory Function: Patent airway with normal (patient baseline) respiratory exam Cardiovascular Function: Hemodynamically Stable Hydration Status: Adequately Hydrated Nausea & Vomiting: No Nausea or Vomiting Pain: Pt. Denies Any Pain Peripheral Nerve Block: Patient did not receive a nerve block
== END 2024-01-18 14:17 | disposition home or self-care (01) ==
PROVIDERS: PCP Nurse Practitioner Adult Health; Visit Provider Surgery
PROC: 0DJD8ZZ Inspection of Lower Intestinal Tract, Via Natural or Artificial Opening Endoscopic (ICD-10-PCS; CPT 45378; principal; 2024-01-18 12:00)
DX: Z12.11 Encounter for screening for malignant neoplasm of colon (principal); D12.8 Benign neoplasm of rectum; I44.1 Atrioventricular block, second degree; I34.0 Nonrheumatic mitral (valve) insufficiency; J45.909 Unspecified asthma, uncomplicated
CPT/HCPCS: 45380; 88305; J2704

== ENCOUNTER → 2024-05-06 09:44 | Outpatient (BNVA) | payer MEDICARE, SELFPAY | PROVIDERS: PCP Nurse Practitioner Adult Health; Referring Provider Nurse Practitioner Adult Health; Visit Provider Physician Assistant Surgical | DX: R06.00 Dyspnea, unspecified (principal) | CPT/HCPCS: 99214 ==

== ENCOUNTER 2024-08-25 04:08 | Outpatient (CLI) | payer MEDICARE, SELFPAY ==
[2024-08-25 13:36] LABS: Absolute Neutrophil Count 4.72 10^3/uL (1.2-6.7); HCT 39.3 % (36.0-46.0); MCHC 33.1 % (32.0-36.0); MCV 88 fL (80-95); MPV 9.7 fL (8.0-11.0); Platelet Count 304 10^3/uL (130-400); RBC 4.48 10^6/uL (3.93-5.22); RDW 12.7 % (11.7-14.6); RDW-SD 40.7 fL; WBC 11.24 10^3/uL (4.4-10.8)
[2024-08-25 14:00] LABS: Absolute Eosinophil Count 0.22 10^3/uL (0.0-0.7); Diff Comment Manual Differential; RBC Morphology Normal
[2024-08-25 14:42] LABS: ALT 22 U/L (14-59); AST 23 U/L (15-37); Albumin 3.5 g/dL (3.4-5.0); Alkaline Phosphatase 87 U/L (46-116); Anion Gap 4.5 mmol/L (3-11); BUN 16 mg/dL (7-18); Bilirubin, Total 0.4 mg/dL (0.2-1.0); CO2 30.5 mmol/L (21.0-32.0); CREATININE 0.8 mg/dL (0.55-1.02); Calcium 10.1 mg/dL (8.5-10.1); Calculated LDL 112 mg/dL (<100); Chloride 106 mmol/L (98-107); Cholesterol 209 mg/dL (<200); Estimated GFR 78.72 (mL/min/1.73m2); Glucose 95 mg/dL (74-106); HDL Cholesterol 82 mg/dL (>or=50); Potassium 4.3 mmol/L (3.5-5.1); Sodium 141 mmol/L (136-145); Total Protein 6.9 g/dL (6.4-8.2); Triglyceride 76 mg/dL (<150); Vitamin D 25 Total 51 ng/mL (30-100)
== END 2024-08-25 04:09 | disposition home or self-care (01) ==
PROVIDERS: PCP Nurse Practitioner Adult Health; Visit Provider Nurse Practitioner Adult Health
DX: E83.52 Hypercalcemia (principal); D72.829 Elevated white blood cell count, unspecified; D75.839 Thrombocytosis, unspecified
CPT/HCPCS: 36415; 80053; 80061; 82306; 85025

== ENCOUNTER 2024-11-20 11:58 | Outpatient (CLI) | payer MEDICARE, SELFPAY ==
[2024-11-20 12:48] LABS: Abs Immature Grans 0.03 10^3/uL (0.0-0.06); HCT 37.7 % (36.0-46.0); HGB 12.4 g/dL (11.2-15.7); Immature Grans % 0.2 %; MCH 28.8 pg (27.0-33.0); MCHC 32.9 % (32.0-36.0); MCV 88 fL (80-95); MPV 10.0 fL (8.0-11.0); Platelet Count 354 10^3/uL (130-400); RBC 4.31 10^6/uL (3.93-5.22); RDW 13.1 % (11.7-14.6); RDW-SD 42.5 fL; WBC 12.51 10^3/uL (4.4-10.8)
[2024-11-20 13:20] LABS: RBC Morphology Normal
[2024-11-20 13:27] LABS: Glucose Negative (Negative)
[2024-11-20 15:54] LABS: ALT 30 U/L (14-59); AST 25 U/L (15-37); Albumin 3.8 g/dL (3.4-5.0); Alkaline Phosphatase 82 U/L (46-116); Anion Gap 6.5 mmol/L (3-11); BUN 22 mg/dL (7-18); Bilirubin, Total 0.3 mg/dL (0.2-1.0); CO2 30.5 mmol/L (21.0-32.0); Calcium 10.3 mg/dL (8.5-10.1); Chloride 105 mmol/L (98-107); Estimated GFR 92.41 (mL/min/1.73m2); Glucose 97 mg/dL (74-106); Magnesium 2.2 mg/dL (1.8-2.4); Potassium 4.3 mmol/L (3.5-5.1); Sodium 142 mmol/L (136-145); TSH (W/Ref FT4) 1.01 uIU/mL (0.36-3.74); Total Protein 7.2 g/dL (6.4-8.2); Vitamin B12 475 pg/mL (193-986)
[2024-11-20 16:02] LABS: Folate > 20.0 ng/mL (8.6-20.0)
[2024-11-21 13:03] LABS: Syphilis Serology (RPR) Negative (Negative)
== END 2024-11-20 11:59 | disposition home or self-care (01) ==
LOC: LBO 11:59
PROVIDERS: PCP Nurse Practitioner Adult Health; Visit Provider Nurse Practitioner Adult Health
DX: R41.3 Other amnesia (principal)
CPT/HCPCS: 36415; 80053; 81003; 82607; 82746; 83735; 84443; 85025; 86592

== ENCOUNTER 2024-12-11 12:20 | Outpatient (CLI) | payer MEDICARE, SELFPAY ==
--- NOTE | 2024-12-11 06:15 | DI.MRI_ITS ---
Exam(s) MR BRAIN WO EXAM: MR BRAIN WO CLINICAL HISTORY: ? acute process; concern for dementia,memory difficulties,r41.3 TECHNIQUE: Multiplanar multisequence MRI of the brain was performed. COMPARISON: No exams were available for comparison FINDINGS: VENTRICLES AND EXTRA AXIAL SPACES: Normal in size and morphology for the patient's age. MIDLINE SHIFT: None. CEREBRAL PARENCHYMA: No focus of restricted diffusion to suggest acute infarct. No space-occupying lesion identified. Minimal atrophy consistent with the patient's age. Minimal scattered foci of high signal in the white matter consistent with sequela of chronic microvascular disease. BRAINSTEM/CEREBELLUM: Normal. VISUALIZED PARANASAL SINUSES: Clear. MASTOIDS:Clear. Vasculature: Normal flow void. PITUITARY GLAND: Unremarkable. ORBITS: Unremarkable. IMPRESSION: Unremarkable MRI of the brain. DATA REPOSITORY:
== END 2024-12-11 12:40 ==
LOC: DI 12:21
PROVIDERS: PCP Nurse Practitioner Adult Health; Visit Provider Nurse Practitioner Adult Health
DX: R41.3 Other amnesia (principal)
CPT/HCPCS: 70551

== ENCOUNTER 2024-12-18 04:18 | Outpatient (CLI) | payer MEDICARE, SELFPAY ==
[2024-12-18 10:59] LABS: Calcium 10.6 mg/dL (8.5-10.1); Magnesium 2.2 mg/dL (1.8-2.4)
[2024-12-18 11:37] LABS: Vitamin D 25 Total 50 ng/mL (30-100)
[2024-12-19 13:20] LABS: Calcium (Random Urine) 70.6 mg/dL (See Note)
== END 2024-12-18 04:19 | disposition home or self-care (01) ==
LOC: LBO 04:18
PROVIDERS: PCP Nurse Practitioner Adult Health; Referring Provider Nurse Practitioner Adult Health; Visit Provider Nurse Practitioner Adult Health
DX: E83.52 Hypercalcemia (principal)
CPT/HCPCS: 36415; 82306; 82310; 82330; 82340; 83735; 83970; 84100